=== PATIENT | male | born 1955 | race Caucasian/White ===

== ENCOUNTER 2022-08-25 11:48 | Inpatient (IN) ==
[2022-08-25] MEDS ORDERED: IOPAMIDOL 100 ML BOTTLE IV ONE (11:49)
[2022-08-25] MEDS ORDERED: ONDANSETRON 4 MG/2 ML VIAL IV ONE (11:50)
[2022-08-25] MEDS ORDERED: LACTATED RINGERS 1,000 ML IV ONE ×2 (11:50→14:08)
[2022-08-25] MEDS ORDERED: morphine 10 MG/ML VIAL IV ONE (12:07)
[2022-08-25 12:21] LABS: POC Creatinine 0.8 (0.6-1.2); POC Potassium 4.2 (3.3-5.1)
[2022-08-25 13:09] LABS: Basophils # (Auto) 0.07 K/mcL (0.00-0.30); Basophils % (Auto) 0.3 % (0.0-2.0); Eosinophils # (Auto) 0.17 K/mcL (0.00-0.70); Eosinophils % (Auto) 0.8 % (0.0-7.0); Hematocrit 44.9 % (40.1-51.0); Hemoglobin 13.4 g/dL (13.7-17.5); Lymphocytes # (Auto) 1.41 K/mcL (1.50-4.80); Lymphocytes % (Auto) 6.6 % (15.5-49.0); Mean Cell Volume 74.7 fL (80.0-100.0); Mean Corpuscular HGB Conc 29.8 g/dL (31.0-36.0); Mean Platelet Volume 8.4 fL (8.8-12.5); Monocytes # (Auto) 0.66 K/mcL (0.10-0.90); Monocytes % (Auto) 3.1 % (1.0-12.0); Neutrophils % (Auto) 88.5 % (38.0-78.0); Platelet Count 466 K/mcL (140-440); RBC 6.01 M/mcL (4.63-6.08); WBC 21.5 K/mcL (4.5-11.0)
--- NOTE | 2022-08-25 13:20 | Cat Scan Report ---
History: Small bowel obstruction, prior partial colectomy, nausea, vomiting, COPD TECHNIQUE: Following injection of intravenous nonionic contrast patient was imaged during the portal venous phase from above the diaphragm through the symphysis pubis. Sagittal and coronal reformats were created. The radiation exposure was limited using dose reduction technology. FINDINGS: There is mild pulmonary fibrosis in both lung bases. The bilateral pleural effusions and groundglass alveolar infiltrates seen on the prior CT done on 04/10/22 have resolved. Heart size is normal. Moderate amount of atherosclerotic plaque is present in the coronary arteries. There is bronchial wall thickening in both lung bases consistent with chronic bronchitis. Incidentally noted is bilateral gynecomastia. The liver is normal in size. There is mild generalized fatty infiltration. Gallbladder is distended but the wall is thin and there are no stones within the lumen. The bile ducts are nondilated. No mass or inflammation are present in the pancreas. Spleen is normal in size and homogeneous. There are multiple cysts in both kidneys. Largest extends posteriorly from the lower third of the right kidney measures 5 cm. There is milk of calcium layering posteriorly within this dominant cyst. There are also several nonobstructing calyceal stones in the right kidney. Largest measures 12 mm. These are also chronic. No stone is present in the left kidney. There is no solid mass or hydronephrosis in either kidney. The urinary bladder is normally distended and there are no stones within the lumen. The stomach is normally distended with fluid. The duodenum is decompressed. There is dilatation of the mid and distal jejunum and proximal ileum with large amount of fluid. There are several air-fluid levels. The jejunum measures up to 4.2 cm in transverse dimension. There is a gradual transition in the proximal ileum in the left upper pelvis. The distal ileum is collapsed and there is mild submucosal deposition of fat. No discrete mass is seen within the small intestine. Patient had a prior left colectomy performed. The remaining right-side of the colon and distal sigmoid/rectum are normal without evidence of inflammation or obstruction. The appendix is not visualized and may have been removed. No adenopathy ascites or mass are seen within the abdomen or pelvis. Severe atherosclerotic disease is present along the wall of normal caliber abdominal aorta and iliac arteries. No hernia is present. IMPRESSION: Distal small bowel obstruction in the proximal ileum. The deposition of submucosal fat in the distal ileum suggests chronic inflammatory bowel disease. However, this is a new finding since 04/10/22. The small bowel dilatation is much worse today. There may be occult adhesions. Stable nonobstructing stones in the right kidney and stable renal cysts COPD Dr. Ruvalcaba was called with the report Interpreted and Authenticated by: Warren Newton 08/25/22
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
[2022-08-25 13:34] LABS: ALT/SGPT 29 U/L (<40); AST/SGOT 21 U/L (<40); Alkaline Phosphatase 95 U/L (39-117); Bilirubin,Direct 0.2 mg/dL (<0.3); Bilirubin,Total 0.5 mg/dL (0.1-1.0)
[2022-08-25] MEDS: HYDROmorphone 0.5 MG/0.5 ML SYRINGE IV PRN ×6 (13:42→23:59)
[2022-08-25] MEDS ORDERED: PIPERACILLIN SODIUM/TAZOBACTAM 3.375 GM in DEXTROSE 5% IN WATER 50 ML IV ONE (14:03)
[2022-08-25] MEDS ORDERED: BENZOCAINE ONE 20% 1 SPRAY TOPICAL (14:36)
--- NOTE | 2022-08-25 15:12 | XRay Report ---
HISTORY: Nasogastric tube insertion for small bowel obstruction FINDINGS: Nasogastric tube is been inserted. The tip is in the cardia of the stomach. The sidehole is in the distal esophagus near the gastroesophageal junction. The stomach is decompressed. There is contrast in the kidneys following the preceding CT scan. There is no hydronephrosis. Lung bases are clear. IMPRESSION: NG tube in the upper stomach. This could be advanced several centimeters. Interpreted and Authenticated by: Warren Newton 08/25/22
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
[2022-08-25] MEDS ORDERED: fentaNYL 100 MCG/2 ML VIAL IV ONE (16:26)
[2022-08-25] MEDS ORDERED: KETOROLAC 30 MG/ML VIAL IV ONE (16:26)
[2022-08-25] MEDS ORDERED: DEXTROSE 50% 50 ML VIAL IV PRN (18:01)
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
--- NOTE | 2022-08-25 18:29 | XRay Report ---
HISTORY: Preop, bowel obstruction FINDINGS: The lungs are clear. The heart, mediastinum, darlene and pleura are normal. NG tube passes through the esophagus into the stomach. IMPRESSION: Normal chest Interpreted and Authenticated by: Warren Newton 08/25/22
[2022-08-25] MEDS: DEXTROSE 5%-LR 1,000 ML IV SCH (19:09)
[2022-08-25 20:42] LABS: INR 0.9 (0.9-1.1); Prothrombin Time 12.3 sec (11.9-14.5)
[2022-08-25] MEDS: PIPERACILLIN SODIUM/TAZOBACTAM 3.375 GM in DEXTROSE 5% IN WATER 50 ML IV SCH (21:32)
[2022-08-25] MEDS: IPRATROPIUM/ALBUTEROL 3 ML AMPUL.NEB NEB SCH (21:45)
[2022-08-25] MEDS ORDERED: IPRATROPIUM/ALBUTEROL 3 ML AMPUL.NEB NEB ONE (21:46)
[2022-08-25 23:40] LABS: Estimated Average Glucose(eAG) 157 mg/dL; Hemoglobin A1C 7.1 % Hgb (4.0-6.0)
[2022-08-26] MEDS: PIPERACILLIN SODIUM/TAZOBACTAM 3.375 GM in DEXTROSE 5% IN WATER 50 ML IV SCH ×5 (00:21→23:13)
[2022-08-26] MEDS: INSULIN LISPRO 1 UNIT/0.01 ML UNIT SQ SCH ×5 (00:29→23:21)
[2022-08-26] MEDS: IPRATROPIUM/ALBUTEROL 3 ML AMPUL.NEB NEB SCH ×4 (01:08→19:00)
[2022-08-26] MEDS: DEXTROSE 5%-LR 1,000 ML IV SCH ×5 (01:08→23:59)
[2022-08-26] MEDS: HYDROmorphone 0.5 MG/0.5 ML SYRINGE IV PRN ×9 (02:58→23:10)
[2022-08-26 06:46] LABS: Hematocrit 36.3 % (40.1-51.0); Hemoglobin 10.5 g/dL (13.7-17.5); Mean Cell Volume 75.2 fL (80.0-100.0); Mean Corpuscular HGB Conc 28.9 g/dL (31.0-36.0); Mean Platelet Volume 8.6 fL (8.8-12.5); Platelet Count 330 K/mcL (140-440); RBC 4.83 M/mcL (4.63-6.08); Red Cell Distribution Width 18.2 % (11.5-14.5)
[2022-08-26 06:47] LABS: Appearance,Urine TURBID (Clear); Bilirubin,Urine Negative (Negative); Calcium Oxalate Crystals,Urine FEW /hpf; Color,Urine AMBER; Culture Indicated,Urine No; Glucose,Urine (UA) Negative (Negative); Ketones,Urine Negative (Negative); Leukocyte Esterase,Urine Negative /uL (Negative); Mucus,Urine FEW /hpf; Nitrate,Urine Negative (Negative); Protein,Urine 30 mg/dL (Negative); Specific Gravity,Urine 1.049 (1.000-1.035); Urine Blood Negative (Negative); Urine RBC 10 /hpf (0-3); Urine Squamous Epithelial Cell 0 /hpf (0-4); Urine WBC 6 /hpf (0-4); Urobilinogen,Urine Negative
[2022-08-26 07:10] LABS: Blood Urea Nitrogen 20 mg/dL (8-23); Calcium 8.4 mg/dL (8.6-10.4); Carbon Dioxide 25 mmol/L (22-30); Chloride 105 mmol/L (96-108); Glomerular Filtration Rate 79; Glucose 168 mg/dL (70-105)
--- NOTE | 2022-08-26 09:05 | XRay Report ---
HISTORY: Follow-up small bowel obstruction FINDINGS: Supine and erect views were obtained. There is a nasogastric tube in the fundus of the stomach. The stomach is decompressed. There are couple loops of mildly dilated small intestine with air-fluid levels. The largest segment is in the left upper quadrant and measures 3.6 cm. Most of the small bowel is fluid-filled. The large bowel appears decompressed. Comparison with prior exam on 08/25/22 shows improving small bowel obstruction. No free intra-abdominal air is present. There is no apparent soft tissue mass in the abdomen. IMPRESSION: Improving small bowel obstruction Interpreted and Authenticated by: Warren Newton 08/26/22
[2022-08-26] MEDS: BENZOCAINE ONE 20% 1 SPRAY TOPICAL PRN (10:32)
--- NOTE | 2022-08-26 11:03 | General Surgery Progress Note ---
SUBJECTIVE Subjective Patient information: Note initiated : 08/26/22 at 11:00 am Service Date, if different from initiated Date: [] Patient: Kostas Barrios 67 y/o M admitted on 08/25/22 for Bowel Obstruction. Chief Complaint: [] Feels much improved. No gas or flatus yet, pain largely resolved Constitutional Vitals: Vital Signs Temp Pulse Resp BP Pulse Ox O2 Del Method O2 Flow Rate 98.2 F 94 H 18 150/69 99 Nasal Cannula 1.5 08/26/22 08:00 08/26/22 08:00 08/26/22 08:00 08/26/22 08:00 08/26/22 08:00 08/26/22 08:00 08/26/22 08:00 Period Temp Pulse Resp BP Sys/Barry Pulse Ox O2 Del Method O2 Flow Rate Last 24 Hr 97.4 F-98.8 F 94-135 18-26 148-206/63-121 91-99 Nasal Cannula- Room Air 1- Intake and Output 08/25/22 08/26/22 08/26/22 19:59 03:59 11:59 Intake Total 2049 1100 50 Output Total 450 200 Balance 2049 650 -150 Weight 231 lb 9.6 oz Intake & Output: Intake & Output 08/25/22 08/26/22 08/26/22 19:59 03:59 11:59 Intake Total 2049 1100 50 Output Total 450 200 Balance 0 650 -150 Weight 231 lb 9.6 oz Intake: IV 2049 1100 50 Dextrose 5%-Lactated Ringers 1, 1000 000 ml @ 125 mls/hr IV .Q8H ELSA Rx#:[id number] Lactated Ringers 1,000 ml @ 2000 Wide Open IV BOLUS ONE Rx#: [id number] Zosyn 3.375 gm In Dextrose 5% 50 100 50 in Water 50 ml @ 100 mls/hr IV Q6H ELSA Rx#:[id number] Oral 0 Output: Gastric Drainage 350 Right Nare 350 Void Amount 100 200 # of times incontinent of urine 0 Other: Urine Appearance Clear Clear Urine Color Dark Yellow Dark Yellow Urine Odor Strong Strong # Voids 0 Exam: looks well, non toxic, NAD Respiratory Respiratory exam: Present normal respiratory exam Cardiovascular Cardiovascular exam: Present normal rate and rhythm GI/Abdominal Additional comments: soft, less distended, minimally tender, NGT in place and functional Extremities Exam Additional comments: well perfused A/P Assessment and plan (1) Small bowel obstruction: Assessment and plan: Adhesion Related SBO Markedly improved overall Continue current management for now Advance NGT 3-5 cm and re check plain films in AM Status: Acute Time Spent With Patient Time: Total time spent is greater than 50% in coordination of care (as documented) at patient's floor/unit and/or counseling patient:
[2022-08-26] MEDS: PANTOPRAZOLE 40 MG VIAL IV SCH (11:43)
--- NOTE | 2022-08-26 12:34 | XRay Report ---
HISTORY: Small bowel obstruction, advanced nasogastric tube FINDINGS: There are couple loops of dilated small bowel in the left upper quadrant which measure up to 3.1 cm in diameter. The small bowel is smaller in caliber and it was on the earlier study. The NG tube has been advanced a couple centimeter. IMPRESSION: Improving small bowel obstruction Interpreted and Authenticated by: Warren Newton 08/26/22
--- NOTE | 2022-08-26 15:06 | Internal Med Progress Note ---
SUBJECTIVE Subjective Patient information: Note initiated : 08/26/22 at 3:03 pm Service Date, if different from initiated Date: [] Patient: Kostas Barrios 67 y/o M admitted on 08/25/22 for Bowel Obstruction. Chief Complaint: [] Additional PMFSH (Level 3 Only): Patient is a 67 years old male with diabetes mellitus 2, CAD, COPD, DJD, hepatitis C, ankylosing spondylitis, rheumatoid arthritis on prednisone, vitamin D deficiency has history of multiple recurrent small bowel obstructions, prior bowel perforation requiring partial colectomy and small bowel removal presented with acute onset of diffuse abdominal pain, nausea and vomiting since morning. Patient states it is similar to his prior bowel obstruction. Patient reported his last bowel obstruction was around 6 months ago when he was admitted in [place] this resolved with nonoperative management. Patient reports usually he does not require any supplemental oxygen for COPD but on ambulation up to 2 L he needs. His reported patient has had at least around [address] scan abdomen showed distal small bowel obstruction and proximal ileum. Patient was tachycardic, blood pressure was elevated 186/111 suspect due to pain. Labs showed WBC 21.5, hemoglobin 13.4. Lactic acid 3.6. Renal functions and electrolytes stable, glucose 230. 6/22. Patient feels much improved. Pain has significantly improved. No nausea or vomiting, has not passed flatus or has no bowel movement. Review of system 14 point review of system obtained was negative except mentioned above. Physical examination Alert, sitting up, appears significantly improved Normocephalic, atraumatic No scleral icterus Chest is clear bilaterally S1 and S2, sinus tachycardia heart rate improved to 100, no murmurs heard Abdomen less distended, less tender mainly in the left abdomen, no rebound or rigidity Alert and oriented, no focal deficits Appropriate mood Assessment and plan Recurrent small bowel obstruction with significant leukocytosis and lactic acidosis. Overall improving. Abdominal x-ray shows resolving bowel obstruction. Leukocytosis resolved. Continue antibiotics. Continue NGT. Surgery following. Ice chips to keep mouth right Diabetes mellitus 2, insulin sliding scale. CAD, EKG without any acute ischemia. Appears stable CHF, hold Lasix for surgery COPD, not in exacerbation currently, DuoNebs DJD, continue fentanyl patch Hepatitis C, stable Ankylosing spondylitis, stable Vitamin D deficiency GERD, on PPI Tobacco abuse, nicotine patch BPH, continue tamsulosin Insomnia, trazodone DVT prophylaxis with SCDs Full code Total time > 50 min Constitutional Vitals: Vital Signs Temp Pulse Resp BP Pulse Ox O2 Del Method O2 Flow Rate 97.9 F 102 H 16 160/80 95 Room Air 1 08/26/22 12:00 08/26/22 12:01 08/26/22 12:01 08/26/22 12:00 08/26/22 12:01 08/26/22 12:01 08/26/22 12:00 Period Temp Pulse Resp BP Sys/Barry Pulse Ox O2 Del Method O2 Flow Rate Last 24 Hr 97.4 F-98.8 F 94-135 16-26 148-205/63-112 91-99 Nasal Cannula- Room Air - Intake and Output 08/26/22 08/26/22 08/26/22 03:59 11:59 19:59 Intake Total 1100 1025 50 Output Total 450 350 750 Balance 650 675 -700 Intake & Output: Intake & Output 08/26/22 08/26/22 08/26/22 03:59 11:59 19:59 Intake Total 1100 1025 50 Output Total 450 350 750 Balance 650 675 -700 Intake: IV 1100 1025 50 Dextrose 5%-Lactated Ringers 1, 1000 975 000 ml @ 125 mls/hr IV .Q8H ELSA Rx#:[id number] Zosyn 3.375 gm In Dextrose 5% 100 50 50 in Water 50 ml @ 100 mls/hr IV Q6H ELSA Rx#:[id number] Oral 0 Tube Feeding 0 Output: Gastric Drainage 350 750 NG/OG 750 Right Nare 350 Void Amount 100 350 # of times incontinent of urine 0 Other: Urine Appearance Clear Clear Urine Color Dark Yellow Yellow Urine Odor Strong Strong # Voids 0 OBJ DATA Labs 08/26/22 05:47 08/26/22 05:47 Labs: Abnormal Lab Results 08/26/22 08/26/22 08/25/22 05:47 05:47 18:12 WBC Hgb 10.5 L Hct 36.3 L MCV 75.2 L MCH 21.7 L MCHC 28.9 L RDW 18.2 H Plt Count MPV 8.6 L Immature Gran % (Auto) Neut % (Auto) Lymph % (Auto) Lymph # (Auto) Immature Gran # Absolute Neutrophils POC VBG pH POC VBG pCO2 at Temp POC VBG pO2 POC VBG HCO3 POC Venous O2 Sat VBG Lactic Acid POC Anion Gap POC BUN Glucose 168 H POC Glucose Hemoglobin A1c 7.1 H Calcium 8.4 L POC WB Ioniz Calcium Urine Appearance Urine Protein Urine RBC Urine WBC Calcium Oxalate Crystal Urine Mucus 08/25/22 08/25/22 08/25/22 15:40 13:30 12:19 WBC Hgb Hct MCV MCH MCHC RDW Plt Count MPV Immature Gran % (Auto) Neut % (Auto) Lymph % (Auto) Lymph # (Auto) Immature Gran # Absolute Neutrophils POC VBG pH POC VBG pCO2 at Temp 37.9 L POC VBG pO2 65 H POC VBG HCO3 23.8 L POC Venous O2 Sat 92.0 H VBG Lactic Acid 2.7 H POC Anion Gap 18.0 H POC BUN 25 H Glucose POC Glucose 230 H Hemoglobin A1c Calcium POC WB Ioniz Calcium 1.00 L Urine Appearance Turbid A Urine Protein 30 A Urine RBC 10 H Urine WBC 6 H Calcium Oxalate Crystal Few A Urine Mucus Few A 08/25/22 08/25/22 12:15 12:14 WBC 21.5 H Hgb 13.4 L Hct MCV 74.7 L MCH 22.3 L MCHC 29.8 L RDW 19.0 H Plt Count 466 H MPV 8.4 L Immature Gran % (Auto) 0.7 H Neut % (Auto) 88.5 H Lymph % (Auto) 6.6 L Lymph # (Auto) 1.41 L Immature Gran # 0.16 H Absolute Neutrophils 19.04 H POC VBG pH 7.48 H POC VBG pCO2 at Temp 31.7 L POC VBG pO2 69 H POC VBG HCO3 23.7 L POC Venous O2 Sat 95.0 H VBG Lactic Acid 3.6 H POC Anion Gap POC BUN Glucose POC Glucose Hemoglobin A1c Calcium POC WB Ioniz Calcium Urine Appearance Urine Protein Urine RBC Urine WBC Calcium Oxalate Crystal Urine Mucus Meds: Medications Albuterol/Ipratropium (Ipratropium/Albuterol 3 Ml Ampul.Neb) 3 ml NEB Q6HRT ELSA Last Admin: 08/26/22 12:00 Dose: 3 ml Benzocaine (Benzocaine 20% 1 [place] Each) 1 spray TOPICAL Q4HP PRN PRN Reason: NG TUBE Last Admin: 08/26/22 10:32 Dose: 1 spray Dextrose (Dextrose 50% 50 Ml Vial) 0 ml IV UD PRN PRN Reason: Hypoglycemia Diagnostic Test (Pha) (Accu-Chek 1 Each Strip) 1 each FS Q6 ELSA Last Admin: 08/26/22 11:28 Dose: 1 each Hydromorphone HCl (Hydromorphone 0.5 Mg/0.5 Ml Syringe) 0.5 mg IV Q1HP PRN; Protocol PRN Reason: Per Pain Protocol Last Admin: 08/26/22 13:28 Dose: 0.5 mg Piperacillin Sod/Tazobactam (Sod 3.375 gm/ Dextrose) 50 mls @ 100 mls/hr IV Q6H ELSA; Protocol Last Infusion: 08/26/22 12:32 Dose: Infused Dextrose/Lactated Ringer's (Dextrose 5%-Lactated Ringers) 1,000 mls @ 125 mls/hr IV .Q8H ELSA Last Admin: 08/26/22 11:01 Dose: 125 mls/hr Insulin Human Lispro (Insulin Lispro 1 Unit/0.01 Ml Unit) 0 unit SQ Q6 ELSA; Protocol Last Admin: 08/26/22 11:43 Dose: 2 units Pantoprazole Sodium (Pantoprazole 40 Mg Vial) 40 mg IV QAMAC ELSA Last Admin: 08/26/22 11:43 Dose: 40 mg A/P Time Spent With Patient Time: Total time spent is greater than 50% in coordination of care (as documented) at patient's floor/unit and/or counseling patient: QUALITY Stroke Symptom Onset Unknown: No VTE Deep Vein Thrombosis/Pulmonary Embolism Present on Admission: No
[2022-08-26] MEDS: ACETAMINOPHEN 650 MG/65 ML BAG IV PRN ×2 (16:35→20:21)
[2022-08-26] MEDS: hydrALAZINE 20 MG/ML VIAL IV PRN ×2 (17:38→23:55)
--- NOTE | 2022-08-26 17:57 | EKG ---
[facility] Test Date: 2022-08-25 Pat Name: Kostas Barrios Department: ED Room: Gender: Male [employer]: PERRI : 1955 Requested By: Sergio Ruvalcaba Order Number: [id number] Reading MD: Guy Newton M.D. Measurements Intervals Gable Rate: 120 P: 85 AR: 167 QRS: 89 QRSD: 69 T: 61 QT: 322 QTc: 455 Interpretive Statements Sinus tachycardia Electronically Signed On 08-26-2022 17:56:54 PDT by Guy Newton M.D. /store/[email or web address]/[id number]
--- NOTE | 2022-08-26 18:10 | Internal Med Progress Note ---
SUBJECTIVE Subjective Patient information: Note initiated : 08/26/22 at 6:10 pm Service Date, if different from initiated Date: [] Patient: Kostas Barrios 67 y/o M admitted on 08/25/22 for Bowel Obstruction. Chief Complaint: [] Additional PMFSH (Level 3 Only): Patient is a 67 years old male with diabetes mellitus 2, CAD, COPD, DJD, hepatitis C, ankylosing spondylitis, rheumatoid arthritis on prednisone, vitamin D deficiency has history of multiple recurrent small bowel obstructions, prior bowel perforation requiring partial colectomy and small bowel removal presented with acute onset of diffuse abdominal pain, nausea and vomiting since morning. Patient states it is similar to his prior bowel obstruction. Patient reported his last bowel obstruction was around 6 months ago when he was admitted in [place] this resolved with nonoperative management. Patient reports usually he does not require any supplemental oxygen for COPD but on ambulation up to 2 L he needs. His reported patient has had at least around [address] scan abdomen showed distal small bowel obstruction and proximal ileum. Patient was tachycardic, blood pressure was elevated 186/111 suspect due to pain. Labs showed WBC 21.5, hemoglobin 13.4. Lactic acid 3.6. Renal functions and electrolytes stable, glucose 230. 08/26. Patient feels much improved. Pain has significantly improved. No nausea or vomiting, has not passed flatus or has no bowel movement. 08/27. Patient reports abdominal pain is almost the same. Nursing staff reported NG output of about 800 cc. Not passing gas or flatus. No bowel movement. No leukocytosis, no fever. Surgery following Review of system 14 point review of system obtained was negative except mentioned above. Physical examination Alert, sitting up, nontoxic appearance Normocephalic, atraumatic No scleral icterus Chest is clear bilaterally S1 and S2, RRR, no murmurs heard Abdomen mild to moderately distended, diffuse tenderness, no rebound or rigidity Alert and oriented, no focal deficits Appropriate mood Assessment and plan Recurrent small bowel obstruction with significant leukocytosis and elevated lactic acid Continues to report tenderness. No flatus or passing gas. Continue antibiotics Continue NGT ? Small bowel series. Defer to surgery. Diabetes mellitus 2, insulin sliding scale. CAD, EKG without any acute ischemia. Appears stable CHF, hold Lasix for surgery COPD, not in exacerbation currently, DuoNebs DJD, continue fentanyl patch Hepatitis C, stable Ankylosing spondylitis, stable Vitamin D deficiency GERD, on PPI Tobacco abuse, nicotine patch BPH, continue tamsulosin Insomnia, trazodone DVT prophylaxis with SCDs Full code Total time > 50 min Constitutional Vitals: Vital Signs Temp Pulse Resp BP Pulse Ox O2 Del Method O2 Flow Rate 99 F 102 H 22 148/71 94 Room Air 1 08/26/22 16:35 08/26/22 16:00 08/26/22 16:00 08/26/22 17:53 08/26/22 16:00 08/26/22 16:00 08/26/22 12:00 Period Temp Pulse Resp BP Sys/Barry Pulse Ox O2 Del Method O2 Flow Rate Last 24 Hr 97.4 F-99 F 94-119 16- 148-182/63-83 94-99 Nasal Cannula- Room Air - Intake and Output 08/26/22 08/26/22 08/26/22 03:59 11:59 19:59 Intake Total 1100 1025 796 Output Total 450 350 925 Balance 650 675 -129 Weight 105.052 kg Patient Weight 08/27/22 03:59 Weight 105.052 kg Intake & Output: Intake & Output 08/26/22 08/26/22 08/26/22 03:59 11:59 19:59 Intake Total 1100 1025 796 Output Total 450 350 925 Balance 650 675 -129 Weight 105.052 kg Intake: IV 1100 1025 796 Dextrose 5%-Lactated Ringers 1, 1000 975 631 000 ml @ 125 mls/hr IV .Q8H ELSA Rx#:[id number] Zosyn 3.375 gm In Dextrose 5% 100 50 100 in Water 50 ml @ 100 mls/hr IV Q6H ELSA Rx#:[id number] Oral 0 Tube Feeding 0 Output: Gastric Drainage 350 750 NG/OG 750 Right Nare 350 Void Amount 100 350 175 # of times incontinent of urine 0 Other: Urine Appearance Clear Clear Clear Urine Color Dark Yellow Yellow Yellow Urine Odor Strong Strong # Voids 0 OBJ DATA Labs 08/27/22 06:16 08/27/22 06:16 Labs: Abnormal Lab Results 08/26/22 08/26/22 08/25/22 05:47 05:47 18:12 WBC Hgb 10.5 L Hct 36.3 L MCV 75.2 L MCH 21.7 L MCHC 28.9 L RDW 18.2 H Plt Count MPV 8.6 L Immature Gran % (Auto) Neut % (Auto) Lymph % (Auto) Lymph # (Auto) Immature Gran # Absolute Neutrophils POC VBG pH POC VBG pCO2 at Temp POC VBG pO2 POC VBG HCO3 POC Venous O2 Sat VBG Lactic Acid POC Anion Gap POC BUN Glucose 168 H POC Glucose Hemoglobin A1c 7.1 H Calcium 8.4 L POC WB Ioniz Calcium Urine Appearance Urine Protein Urine RBC Urine WBC Calcium Oxalate Crystal Urine Mucus 08/25/22 08/25/22 08/25/22 15:40 13:30 12:19 WBC Hgb Hct MCV MCH MCHC RDW Plt Count MPV Immature Gran % (Auto) Neut % (Auto) Lymph % (Auto) Lymph # (Auto) Immature Gran # Absolute Neutrophils POC VBG pH POC VBG pCO2 at Temp 37.9 L POC VBG pO2 65 H POC VBG HCO3 23.8 L POC Venous O2 Sat 92.0 H VBG Lactic Acid 2.7 H POC Anion Gap 18.0 H POC BUN 25 H Glucose POC Glucose 230 H Hemoglobin A1c Calcium POC WB Ioniz Calcium 1.00 L Urine Appearance Turbid A Urine Protein 30 A Urine RBC 10 H Urine WBC 6 H Calcium Oxalate Crystal Few A Urine Mucus Few A 08/25/22 08/25/22 12:15 12:14 WBC 21.5 H Hgb 13.4 L Hct MCV 74.7 L MCH 22.3 L MCHC 29.8 L RDW 19.0 H Plt Count 466 H MPV 8.4 L Immature Gran % (Auto) 0.7 H Neut % (Auto) 88.5 H Lymph % (Auto) 6.6 L Lymph # (Auto) 1.41 L Immature Gran # 0.16 H Absolute Neutrophils 19.04 H POC VBG pH 7.48 H POC VBG pCO2 at Temp 31.7 L POC VBG pO2 69 H POC VBG HCO3 23.7 L POC Venous O2 Sat 95.0 H VBG Lactic Acid 3.6 H POC Anion Gap POC BUN Glucose POC Glucose Hemoglobin A1c Calcium POC WB Ioniz Calcium Urine Appearance Urine Protein Urine RBC Urine WBC Calcium Oxalate Crystal Urine Mucus Meds: Medications Albuterol/Ipratropium (Ipratropium/Albuterol 3 Ml Ampul.Neb) 3 ml NEB Q6HRT ELSA Last Admin: 08/26/22 12:00 Dose: 3 ml Benzocaine (Benzocaine 20% 1 [place] Each) 1 spray TOPICAL Q4HP PRN PRN Reason: NG TUBE Last Admin: 08/26/22 10:32 Dose: 1 spray Dextrose (Dextrose 50% 50 Ml Vial) 0 ml IV UD PRN PRN Reason: Hypoglycemia Diagnostic Test (Pha) (Accu-Chek 1 Each Strip) 1 each FS Q6 ELSA Last Admin: 08/26/22 17:15 Dose: 1 each Hydralazine HCl (Hydralazine 20 Mg/Ml Vial) 10 mg IV Q6HP PRN PRN Reason: Hypertension Last Admin: 08/26/22 17:38 Dose: 10 mg Hydromorphone HCl (Hydromorphone 0.5 Mg/0.5 Ml Syringe) 0.5 mg IV Q1HP PRN; Protocol PRN Reason: Per Pain Protocol Last Admin: 08/26/22 16:04 Dose: 0.5 mg Piperacillin Sod/Tazobactam (Sod 3.375 gm/ Dextrose) 50 mls @ 100 mls/hr IV Q6H ELSA; Protocol Last Infusion: 08/26/22 17:37 Dose: Infused Dextrose/Lactated Ringer's (Dextrose 5%-Lactated Ringers) 1,000 mls @ 125 mls/hr IV .Q8H ELSA Last Infusion: 08/26/22 17:15 Dose: 125 mls/hr Acetaminophen (Ofirmev) 650 mg in 65 mls @ 130 mls/hr IV Q8HP PRN; Protocol PRN Reason: PAIN/FEVER > 101 Last Infusion: 08/26/22 17:14 Dose: Infused Insulin Human Lispro (Insulin Lispro 1 Unit/0.01 Ml Unit) 0 unit SQ Q6 ELSA; Protocol Last Admin: 08/26/22 17:15 Dose: Not Given Labetalol HCl (Labetalol 5 Mg/Ml Ml) 10 mg IV Q2HP PRN PRN Reason: Hypertension Pantoprazole Sodium (Pantoprazole 40 Mg Vial) 40 mg IV QAMAC ELSA Last Admin: 08/26/22 11:43 Dose: 40 mg A/P Time Spent With Patient Time: Total time spent is greater than 50% in coordination of care (as documented) at patient's floor/unit and/or counseling patient: QUALITY Stroke Symptom Onset Unknown: No VTE Deep Vein Thrombosis/Pulmonary Embolism Present on Admission: No
[2022-08-26] MEDS ORDERED: ACETAMINOPHEN 325 MG TABLET PO ONE (19:42)
[2022-08-26] MEDS: LABETALOL 5 MG/ML ML IV PRN (20:19)
[2022-08-27] MEDS: HYDROmorphone 0.5 MG/0.5 ML SYRINGE IV PRN ×15 (00:52→20:34)
[2022-08-27] MEDS: IPRATROPIUM/ALBUTEROL 3 ML AMPUL.NEB NEB SCH ×4 (00:53→19:00)
[2022-08-27] MEDS: DEXTROSE 5%-LR 1,000 ML IV SCH ×4 (03:08→23:31)
[2022-08-27] MEDS: LABETALOL 5 MG/ML ML IV PRN ×2 (03:12→19:16)
[2022-08-27] MEDS: ACETAMINOPHEN 650 MG/65 ML BAG IV PRN ×2 (03:14→12:03)
[2022-08-27] MEDS: PIPERACILLIN SODIUM/TAZOBACTAM 3.375 GM in DEXTROSE 5% IN WATER 50 ML IV SCH ×3 (05:56→18:00)
[2022-08-27] MEDS: INSULIN LISPRO 1 UNIT/0.01 ML UNIT SQ SCH ×3 (06:04→17:29)
[2022-08-27 06:56] LABS: Hematocrit 35.6 % (40.1-51.0); Hemoglobin 10.3 g/dL (13.7-17.5); Mean Cell Volume 75.7 fL (80.0-100.0); Mean Corpuscular HGB Conc 28.9 g/dL (31.0-36.0); Mean Platelet Volume 8.8 fL (8.8-12.5); Platelet Count 307 K/mcL (140-440); WBC 10.5 K/mcL (4.5-11.0)
[2022-08-27] MEDS: PANTOPRAZOLE 40 MG VIAL IV SCH (07:28)
[2022-08-27 07:48] LABS: Blood Urea Nitrogen 9 mg/dL (8-23); Calcium 8.4 mg/dL (8.6-10.4); Carbon Dioxide 23 mmol/L (22-30); Chloride 104 mmol/L (96-108); Glomerular Filtration Rate 105; Glucose 149 mg/dL (70-105)
[2022-08-27] MEDS: BENZOCAINE ONE 20% 1 SPRAY TOPICAL PRN ×2 (08:57→17:14)
--- NOTE | 2022-08-27 11:25 | XRay Report ---
HISTORY: Follow-up small bowel obstruction FINDINGS: Nasogastric tube is well-positioned in the fundus of the stomach. The stomach is decompressed. There is air in normal caliber large and small intestine. Previously seen small bowel obstruction appears to have resolved. There is air in the colon down to the level of the lower rectum. No free intra-abdominal air is present. IMPRESSION: Resolved bowel obstruction Interpreted and Authenticated by: Warren Newton 08/27/22
[2022-08-27] MEDS ORDERED: IOPAMIDOL 100 ML BOTTLE IV ONE (18:11)
--- NOTE | 2022-08-27 19:43 | Cat Scan Report ---
History: Small bowel obstruction TECHNIQUE: Following injection of intravenous nonionic contrast the patient was imaged from above the diaphragm through the symphysis pubis during the portal venous phase. Sagittal and coronal reformats were created. The radiation exposure was limited using dose reduction technology. FINDINGS: There is mild pulmonary fibrosis in both lung bases which remain stable. No pleural effusion is present. The liver is normal in size and homogeneous. Gallbladder is distended and measures 5.8 x 9.1 cm. The wall is very thin and there are no stones or sludge within the lumen. No pericholecystic fluid collection is present. The bile ducts are nondilated. The spleen is normal. There is no mass or inflammation in the pancreas. The adrenals are normal. There are several scattered cysts in both kidneys. There is a cluster nonobstructing calculi posteriorly in the right kidney. No hydronephrosis is present. There is a nasogastric tube in the body of the stomach. The stomach is decompressed. The duodenum and jejunum are normal. The previously seen small bowel obstruction has resolved since the prior CT done on 08/25/22. However, there is a long segment of abnormal distal ileum with thickened wall. The wall measures up to 9 mm. This extends to the ileocecal valve. This is well seen on axial image #136. There is no surrounding inflammation. No abscess or ascites are present. There is stool in normal caliber large intestine. There is no evidence of diverticulitis or colitis. Urinary bladder is moderately distended and has a smooth wall with no intraluminal filling defects. No adenopathy is present. IMPRESSION: Resolved small bowel obstruction. Long segment of thickened and inflamed distal ileum. This may be due to inflammatory bowel disease. No abdominal mass or ascites Distended gallbladder Interpreted and Authenticated by: Warren Newton 08/27/22
[2022-08-27] MEDS ORDERED: ACETAMINOPHEN 1,000 MG/100 ML BAG IV PRN (20:40)
[2022-08-27] MEDS: HYDROmorphone 1 MG/ML SYRINGE IV PRN ×2 (21:42→23:40)
[2022-08-27] MEDS: ACETAMINOPHEN 1,000 MG/100 ML BAG IV PRN (21:44)
[2022-08-27] MEDS ORDERED: CIPROFLOXACIN 400 MG/200 ML BAG IV SCH (22:15)
[2022-08-27] MEDS ORDERED: CIPROFLOXACIN 400 MG/200 ML BAG IV ONE (22:37)
[2022-08-27] MEDS ORDERED: metroNIDAZOLE 100 ML IV ONE (22:37)
[2022-08-27] MEDS: metroNIDAZOLE 500 MG/100 ML BAG IV SCH (22:38)
[2022-08-28] MEDS: INSULIN LISPRO 1 UNIT/0.01 ML UNIT SQ SCH ×5 (00:17→23:32)
[2022-08-28] MEDS: PIPERACILLIN SODIUM/TAZOBACTAM 3.375 GM in DEXTROSE 5% IN WATER 50 ML IV SCH ×5 (00:47→23:32)
[2022-08-28] MEDS: IPRATROPIUM/ALBUTEROL 3 ML AMPUL.NEB NEB SCH ×4 (01:25→18:10)
[2022-08-28] MEDS: HYDROmorphone 1 MG/ML SYRINGE IV PRN ×13 (01:35→23:23)
[2022-08-28] MEDS: DEXTROSE 5%-LR 1,000 ML IV SCH ×4 (03:00→23:23)
[2022-08-28] MEDS ORDERED: metroNIDAZOLE 100 ML IV ONE (03:54)
[2022-08-28] MEDS: ACETAMINOPHEN 1,000 MG/100 ML BAG IV PRN (05:38)
[2022-08-28] MEDS: metroNIDAZOLE 500 MG/100 ML BAG IV SCH ×3 (06:19→21:30)
[2022-08-28 06:39] LABS: Hematocrit 34.1 % (40.1-51.0); Hemoglobin 10.3 g/dL (13.7-17.5); Mean Cell Volume 75.4 fL (80.0-100.0); Mean Corpuscular HGB Conc 30.2 g/dL (31.0-36.0); Mean Platelet Volume 8.5 fL (8.8-12.5); Platelet Count 308 K/mcL (140-440); RBC 4.52 M/mcL (4.63-6.08); Red Cell Distribution Width 17.8 % (11.5-14.5); WBC 8.5 K/mcL (4.5-11.0)
[2022-08-28] MEDS: PANTOPRAZOLE 40 MG VIAL IV SCH (07:28)
[2022-08-28 07:41] LABS: Blood Urea Nitrogen 7 mg/dL (8-23); Calcium 8.6 mg/dL (8.6-10.4); Carbon Dioxide 22 mmol/L (22-30); Chloride 104 mmol/L (96-108); Glomerular Filtration Rate 94; Glucose 114 mg/dL (70-105)
[2022-08-28] MEDS ORDERED: POTASSIUM CHLORIDE 20 MEQ TABLET PO ONE (08:34)
[2022-08-28] MEDS: CIPROFLOXACIN 400 MG/200 ML BAG IV SCH ×2 (08:54→20:22)
[2022-08-28] MEDS: BENZOCAINE ONE 20% 1 SPRAY TOPICAL PRN (09:01)
--- NOTE | 2022-08-28 11:55 | Internal Med Progress Note ---
SUBJECTIVE Subjective Patient information: Note initiated : 08/28/22 at 11:54 am Service Date, if different from initiated Date: [] Patient: Kostas Barrios 67 y/o M admitted on 08/25/22. Chief Complaint: [] Interval history: Patient is a 67 years old male with diabetes mellitus 2, CAD, COPD, DJD, hepatitis C, ankylosing spondylitis, rheumatoid arthritis on prednisone, vitamin D deficiency has history of multiple recurrent small bowel obstructions, prior bowel perforation requiring partial colectomy and small bowel removal presented with acute onset of diffuse abdominal pain, nausea and vomiting since morning. Patient states it is similar to his prior bowel obstruction. Patient reported his last bowel obstruction was around 6 months ago when he was admitted in [place] this resolved with nonoperative management. Patient reports usually he does not require any supplemental oxygen for COPD but on ambulation up to 2 L he needs. His reported patient has had at least around [address] scan abdomen showed distal small bowel obstruction and proximal ileum. Patient was tachycardic, blood pressure was elevated 186/111 suspect due to pain. Labs showed WBC 21.5, hemoglobin 13.4. Lactic acid 3.6. Renal functions and electrolytes stable, glucose 230. /. Patient feels much improved. Pain has significantly improved. No nausea or vomiting, has not passed flatus or has no bowel movement. 08/27. Patient reports abdominal pain is almost the same. Nursing staff reported NG output of about 800 cc. Not passing gas or flatus. No bowel movement. No leukocytosis, no fever. Surgery following. 08/28. Patient says he is passing gas but has not had a bowel movement yet. Abdomen soft, tenderness mostly in left abdominal quadrant. Low potassium today, replaced. Continues on NG tube to suction per general surgery. Physical exam Head: Atraumatic, normal inspection. Eyes: normal appearance, no scleral icterus. Neck: full ROM Respiratory: no respiratory distress. Cardiovascular: normal rate and rhythm, S1, S2. GI/Abdominal: Nasogastric tube present, nondistended, soft, tenderness in left quadrant, no guarding. Extremities: full range of motion, nontender. Neurological: CN II-XII intact, intact motor, intact sensation. Psychiatric: normal mood. Skin: warm, normal color Constitutional Vitals: Vital Signs Temp Pulse Resp BP Pulse Ox O2 Del Method O2 Flow Rate 98.6 F 91 H 20 154/73 97 Room Air 1 08/28/22 07:33 08/28/22 07:33 08/28/22 07:33 08/28/22 07:33 08/28/22 07:33 08/28/22 07:33 08/26/22 12:00 Period Temp Pulse Resp BP Sys/Barry Pulse Ox O2 Del Method O2 Flow Rate Last 24 Hr 98.2 F-98.7 F 90-100 18-20 122-171/57-75 95-98 Room Air-Room Air Intake and Output 08/27/22 08/28/22 08/28/22 19:59 03:59 11:59 Intake Total 903 1002 1502 Output Total 1450 650 340 Balance -791 417 1452 Weight 103.51 kg Intake & Output: Intake & Output 08/27/22 08/28/22 08/28/22 19:59 03:59 11:59 Intake Total 903 1002 1502 Output Total 1450 650 340 Balance -388 275 8891 Weight 103.51 kg Intake: IV 250 292 2334 Dextrose 5%-Lactated Ringers 1, 421 009 5868 000 ml @ 125 mls/hr IV .Q8H ELSA Rx#:[id number] Zosyn 3.375 gm In Dextrose 5% 100 50 100 in Water 50 ml @ 100 mls/hr IV Q6H ELSA Rx#:[id number] Oral 190 100 Tube Feeding 0 0 Output: Gastric Drainage 650 250 NG/OG 650 Right Nare 250 Void Amount 800 400 340 Other: Urine Appearance Clear Clear Urine Color Yellow Yellow OBJ DATA Labs 08/28/22 05:28 08/28/22 05:28 Labs: Abnormal Lab Results 08/28/22 08/28/22 08/27/22 05:28 05:28 06:16 WBC RBC 4.52 L Hgb 10.3 L Hct 34.1 L MCV 75.4 L MCH 22.8 L MCHC 30.2 L RDW 17.8 H Plt Count MPV 8.5 L Immature Gran % (Auto) Neut % (Auto) Lymph % (Auto) Lymph # (Auto) Immature Gran # Absolute Neutrophils POC VBG pH POC VBG pCO2 at Temp POC VBG pO2 POC VBG HCO3 POC Venous O2 Sat VBG Lactic Acid Potassium 3.2 L POC Anion Gap POC BUN BUN 7 L Creatinine 0.6 L Glucose 114 H 149 H POC Glucose Hemoglobin A1c Calcium 8.4 L POC WB Ioniz Calcium Urine Appearance Urine Protein Urine RBC Urine WBC Calcium Oxalate Crystal Urine Mucus 08/27/22 08/26/22 08/26/22 06:16 05:47 05:47 WBC RBC Hgb 10.3 L 10.5 L Hct 35.6 L 36.3 L MCV 75.7 L 75.2 L MCH 21.9 L 21.7 L MCHC 28.9 L 28.9 L RDW 18.0 H 18.2 H Plt Count MPV 8.6 L Immature Gran % (Auto) Neut % (Auto) Lymph % (Auto) Lymph # (Auto) Immature Gran # Absolute Neutrophils POC VBG pH POC VBG pCO2 at Temp POC VBG pO2 POC VBG HCO3 POC Venous O2 Sat VBG Lactic Acid Potassium POC Anion Gap POC BUN BUN Creatinine Glucose 168 H POC Glucose Hemoglobin A1c Calcium 8.4 L POC WB Ioniz Calcium Urine Appearance Urine Protein Urine RBC Urine WBC Calcium Oxalate Crystal Urine Mucus 08/25/22 08/25/22 08/25/22 18:12 15:40 13:30 WBC RBC Hgb Hct MCV MCH MCHC RDW Plt Count MPV Immature Gran % (Auto) Neut % (Auto) Lymph % (Auto) Lymph # (Auto) Immature Gran # Absolute Neutrophils POC VBG pH POC VBG pCO2 at Temp 37.9 L POC VBG pO2 65 H POC VBG HCO3 23.8 L POC Venous O2 Sat 92.0 H VBG Lactic Acid 2.7 H Potassium POC Anion Gap POC BUN BUN Creatinine Glucose POC Glucose Hemoglobin A1c 7.1 H Calcium POC WB Ioniz Calcium Urine Appearance Turbid A Urine Protein 30 A Urine RBC 10 H Urine WBC 6 H Calcium Oxalate Crystal Few A Urine Mucus Few A 08/25/22 08/25/22 08/25/22 12:19 12:15 12:14 WBC 21.5 H RBC Hgb 13.4 L Hct MCV 74.7 L MCH 22.3 L MCHC 29.8 L RDW 19.0 H Plt Count 466 H MPV 8.4 L Immature Gran % (Auto) 0.7 H Neut % (Auto) 88.5 H Lymph % (Auto) 6.6 L Lymph # (Auto) 1.41 L Immature Gran # 0.16 H Absolute Neutrophils 19.04 H POC VBG pH 7.48 H POC VBG pCO2 at Temp 31.7 L POC VBG pO2 69 H POC VBG HCO3 23.7 L POC Venous O2 Sat 95.0 H VBG Lactic Acid 3.6 H Potassium POC Anion Gap 18.0 H POC BUN 25 H BUN Creatinine Glucose POC Glucose 230 H Hemoglobin A1c Calcium POC WB Ioniz Calcium 1.00 L Urine Appearance Urine Protein Urine RBC Urine WBC Calcium Oxalate Crystal Urine Mucus Meds: Medications Albuterol/Ipratropium (Ipratropium/Albuterol 3 Ml Ampul.Neb) 3 ml NEB Q6HRT ELSA Last Admin: 08/28/22 06:26 Dose: 3 ml Benzocaine (Benzocaine 20% 1 [place] Each) 1 spray TOPICAL Q4HP PRN PRN Reason: NG TUBE Last Admin: 08/28/22 09:01 Dose: 1 spray Dextrose (Dextrose 50% 50 Ml Vial) 0 ml IV UD PRN PRN Reason: Hypoglycemia Diagnostic Test (Pha) (Accu-Chek 1 Each Strip) 1 each FS Q6 ELSA Last Admin: 08/28/22 11:03 Dose: 1 each Hydralazine HCl (Hydralazine 20 Mg/Ml Vial) 10 mg IV Q6HP PRN PRN Reason: Hypertension Last Admin: 08/26/22 23:55 Dose: 10 mg Hydromorphone HCl (Hydromorphone 1 Mg/Ml Syringe) 0.5 - 1 mg IV Q1HP PRN; Protocol PRN Reason: Per Pain Protocol Last Admin: 08/28/22 11:37 Dose: 1 mg Piperacillin Sod/Tazobactam (Sod 3.375 gm/ Dextrose) 50 mls @ 100 mls/hr IV Q6H ELSA; Protocol Last Infusion: 08/28/22 11:33 Dose: Infused Dextrose/Lactated Ringer's (Dextrose 5%-Lactated Ringers) 1,000 mls @ 125 mls/hr IV .Q8H ELSA Last Infusion: 08/28/22 11:53 Dose: 125 mls/hr Acetaminophen (Ofirmev) 1,000 mg in 100 mls @ 200 mls/hr IV Q8HP PRN; Protocol PRN Reason: PAIN/FEVER > 101 Last Infusion: 08/28/22 06:18 Dose: Infused Ciprofloxacin (Cipro) 400 mg in 200 mls @ 200 mls/hr IV Q12H ELSA; Protocol Last Infusion: 08/28/22 10:06 Dose: Infused Metronidazole (Flagyl) 500 mg in 100 mls @ 100 mls/hr IV Q8H ELSA; Protocol Insulin Human Lispro (Insulin Lispro 1 Unit/0.01 Ml Unit) 0 unit SQ Q6 ELSA; Protocol Last Admin: 08/28/22 11:03 Dose: Not Given Labetalol HCl (Labetalol 5 Mg/Ml Ml) 10 mg IV Q2HP PRN PRN Reason: Hypertension Last Admin: 08/27/22 19:16 Dose: 10 mg Pantoprazole Sodium (Pantoprazole 40 Mg Vial) 40 mg IV QAMAC ELSA Last Admin: 08/28/22 07:28 Dose: 40 mg A/P Narrative A/P Narrative: Assessment: 67-year-old male with history of recurrent small bowel obstructions, type 2 diabetes mellitus, coronary artery disease, CHF, COPD, hepatitis C, ankylosing spondylitis, BPH, trazodone, obesity admitted for a small bowel obstruction. #Recurrent small bowel obstruction #Microcytic anemia, stable #Hypokalemia #Type 2 diabetes mellitus, stable #Coronary artery disease, stable #COPD, stable #Ankylosing spondylitis #Degenerative joint disease #Chronic pain on opioid therapy #BPH #Insomnia #Obesity BMI 33 Plan -IV fluid, analgesics as needed, serial abdominal exams. -Antibiotics per general surgery. -Abdominal imaging per general surgery. -NG tube management per general surgery. -Potassium replaced. -Iron studies for microcytic anemia. -Correction Humalog SSI every 6 hours while NPO, low-dose. -Protonix IV daily. -Holding home metformin. -Monitor volume status. -Monitor nutritional status, consider TPN if n.p.o. greater than 5 days. -DVT prophylaxis: Heparin SQ. -CODE STATUS: Full. Time Spent With Patient Time: Total time spent is greater than 50% in coordination of care (as documented) at patient's floor/unit and/or counseling patient: QUALITY Stroke Symptom Onset Unknown: No VTE Deep Vein Thrombosis/Pulmonary Embolism Present on Admission: No
[2022-08-28] MEDS ORDERED: 0.9 % SODIUM CHLORIDE 1,000 ML IV SCH (12:15)
[2022-08-28] MEDS ORDERED: morphine 20 MG/ML ORAL.CONC SL PRN (15:21)
[2022-08-28] MEDS ORDERED: HYDROmorphone 0.5 MG/0.5 ML SYRINGE SC PRN (15:25)
[2022-08-28] MEDS: HEPARIN 5,000 UNIT/ML VIAL SQ SCH ×2 (15:54→21:20)
[2022-08-28] MEDS: hydrALAZINE 20 MG/ML VIAL IV PRN (16:16)
--- NOTE | 2022-08-28 16:41 | General Surgery Progress Note ---
SUBJECTIVE Subjective Patient information: Note initiated : 08/28/22 at 7:40am Service Date, if different from initiated Date: [] Patient: Kostas Barrios 67 y/o M admitted on 08/25/22. Chief Complaint: [] Feels well this am, pain has lessened, starting to pass some gas now - CT scan findings from last night reivewed and show resolution of SBO and what looks like an area of active Crohn's disease in the distal ileum. Constitutional Vitals: Vital Signs Temp Pulse Resp BP Pulse Ox O2 Del Method O2 Flow Rate 98.4 F 101 H 18 171/67 97 Room Air 1 08/28/22 16:00 08/28/22 16:00 08/28/22 16:00 08/28/22 16:00 08/28/22 16:00 08/28/22 16:00 08/26/22 12:00 Period Temp Pulse Resp BP Sys/Barry Pulse Ox O2 Del Method O2 Flow Rate Last 24 Hr 98.2 F-98.7 F 91-101 18-20 146-171/66-75 92-98 Room Air-Room Air Intake and Output 08/28/22 08/28/22 08/28/22 03:59 11:59 19:59 Intake Total 1002 1502 172 Output Total 650 340 200 Balance 352 1162 -28 Intake & Output: Intake & Output 08/28/22 08/28/22 08/28/22 03:59 11:59 19:59 Intake Total 1002 1502 172 Output Total 650 340 200 Balance 352 1162 -28 Intake: IV 902 1502 72 Dextrose 5%-Lactated Ringers 1, 452 1002 72 000 ml @ 100 mls/hr IV .Q10H [facility] Rx#:[id number] Zosyn 3.375 gm In Dextrose 5% 50 100 in Water 50 ml @ 100 mls/hr IV Q6H [facility] Rx#:[id number] Oral 100 100 Tube Feeding 0 Output: Gastric Drainage 250 Right Nare 250 Void Amount 400 340 200 Other: Urine Appearance Clear Urine Color Yellow Exam: looks well, non toxic, NAD Respiratory Respiratory exam: Present normal respiratory exam Cardiovascular Cardiovascular exam: Present normal rate and rhythm GI/Abdominal Additional comments: soft, non distended, minimally tender, no peritoneal findings Extremities Exam Additional comments: well perfused A/P Assessment and plan (1) Small bowel obstruction: Assessment and plan: Probable Terminal Ileal Crohn's Disease which may or may not have been but likely were related to presenting bout of SBO Continue present management for now and will discuss management options going forward with medicine - he'll likely need diagnosis and medical management if this indeed is an active area of untreated Crohn's Disease No operative plans at this time Will consider Small Bowel Follow Through on Tuesday to assure enteric flow through this area prior to removing NGT and starting orals Status: Acute (2) IBD (inflammatory bowel disease): Status: Chronic Time Spent With Patient Time: Total time spent is greater than 50% in coordination of care (as documented) at patient's floor/unit and/or counseling patient:
[2022-08-28] MEDS: LABETALOL 5 MG/ML ML IV PRN (17:13)
[2022-08-28] MEDS: ACETAMINOPHEN 1,000 MG/100 ML BAG IV SCH ×2 (17:30→22:42)
[2022-08-29] MEDS: IPRATROPIUM/ALBUTEROL 3 ML AMPUL.NEB NEB SCH ×4 (00:10→18:07)
[2022-08-29] MEDS: HYDROmorphone 1 MG/ML SYRINGE IV PRN ×17 (00:29→23:02)
[2022-08-29] MEDS: BENZOCAINE ONE 20% 1 SPRAY TOPICAL PRN ×2 (02:21→21:40)
[2022-08-29] MEDS: PIPERACILLIN SODIUM/TAZOBACTAM 3.375 GM in DEXTROSE 5% IN WATER 50 ML IV SCH (05:03)
[2022-08-29] MEDS: DEXTROSE 5%-LR 1,000 ML IV SCH ×3 (05:36→17:09)
[2022-08-29] MEDS: metroNIDAZOLE 500 MG/100 ML BAG IV SCH ×3 (05:37→21:17)
[2022-08-29] MEDS: INSULIN LISPRO 1 UNIT/0.01 ML UNIT SQ SCH ×4 (05:41→23:57)
[2022-08-29] MEDS: HEPARIN 5,000 UNIT/ML VIAL SQ SCH ×3 (05:44→22:14)
[2022-08-29 06:38] LABS: Basophils # (Auto) 0.04 K/mcL (0.00-0.30); Basophils % (Auto) 0.5 % (0.0-2.0); Eosinophils # (Auto) 0.54 K/mcL (0.00-0.70); Eosinophils % (Auto) 7.1 % (0.0-7.0); Hematocrit 34.6 % (40.1-51.0); Hemoglobin 10.3 g/dL (13.7-17.5); Lymphocytes # (Auto) 0.99 K/mcL (1.50-4.80); Mean Cell Volume 75.2 fL (80.0-100.0); Mean Corpuscular HGB Conc 29.8 g/dL (31.0-36.0); Mean Platelet Volume 8.6 fL (8.8-12.5); Monocytes # (Auto) 0.57 K/mcL (0.10-0.90); Monocytes % (Auto) 7.5 % (1.0-12.0); Platelet Count 324 K/mcL (140-440); Red Cell Distribution Width 17.7 % (11.5-14.5); WBC 7.6 K/mcL (4.5-11.0)
[2022-08-29] MEDS: PANTOPRAZOLE 40 MG VIAL IV SCH (06:41)
[2022-08-29] MEDS: ACETAMINOPHEN 1,000 MG/100 ML BAG IV SCH ×4 (07:00→22:24)
[2022-08-29 07:08] LABS: ALT/SGPT 12 U/L (<40); AST/SGOT 13 U/L (<40); Albumin 2.9 gm/dL (3.2-5.2); Alkaline Phosphatase 58 U/L (39-117); Bilirubin,Direct < 0.2 mg/dL (0-0.3); Bilirubin,Total 0.3 mg/dL (0.1-1.0); Blood Urea Nitrogen 6 mg/dL (8-23); Calcium 8.7 mg/dL (8.6-10.4); Carbon Dioxide 21 mmol/L (22-30); Chloride 101 mmol/L (96-108); Glomerular Filtration Rate 94; Glucose 103 mg/dL (70-105); Iron 19 ug/dL (61-157); Lactate Dehydrogenase 152 U/L (135-225); Phosphorous 3.3 mg/dL (2.5-4.5); TIBC Calculation 234 ug/dl (228-428); Transferrin % Saturation 8 % (20-50); Triglycerides 112 mg/dL (<150); Uric Acid 2.7 mg/dL (2.5-8.0)
--- NOTE | 2022-08-29 08:45 | General Surgery Progress Note ---
SUBJECTIVE Subjective Patient information: Note initiated : 08/29/22 at 8:41 am Service Date, if different from initiated Date: [] Patient: Kostas Barrios 67 y/o M admitted on 08/25/22. Chief Complaint: [] Continues to feel much improved with increasing passage of gas, no stool yet and pain far less Constitutional Vitals: Vital Signs Temp Pulse Resp BP Pulse Ox O2 Del Method O2 Flow Rate 99.5 F H 96 H 20 160/65 95 Room Air 1 08/29/22 03:45 08/29/22 06:20 08/29/22 06:20 08/29/22 04:15 08/29/22 06:20 08/29/22 06:20 08/26/22 12:00 Period Temp Pulse Resp BP Sys/Barry Pulse Ox O2 Del Method O2 Flow Rate Last 24 Hr 98.2 F-99.5 F 91-102 18-24 154-172/58-69 92-98 Room Air-Room Air Intake and Output 08/28/22 08/29/22 08/29/22 19:59 03:59 11:59 Intake Total 372 1522 250 Output Total 525 1175 Balance -153 347 250 Weight 237 lb 3.2 oz Intake & Output: Intake & Output 08/28/22 08/29/22 08/29/22 19:59 03:59 11:59 Intake Total 372 1522 250 Output Total 525 1175 Balance -153 347 250 Weight 237 lb 3.2 oz Intake: IV 222 1422 250 Dextrose 5%-Lactated Ringers 1, 72 972 000 ml @ 100 mls/hr IV .Q10H [facility] Rx#:[id number] Zosyn 3.375 gm In Dextrose 5% 50 50 50 in Water 50 ml @ 100 mls/hr IV Q6H [facility] Rx#:[id number] Oral 150 100 Tube Feeding 0 0 Output: Gastric Drainage 450 Right Nare 450 Void Amount 525 725 Other: Urine Appearance Clear Clear Urine Color Yellow Yellow Exam: Looks non toxic, no distress GI/Abdominal Additional comments: belly soft and continues to be far less distended - minimal tenderness, NGT functional A/P Assessment and plan (1) Small bowel obstruction: Assessment and plan: Resolved SBO Probable Active Crohn's Disease of the Distal Ileum Check SBFT tomorrow via NGT to assure unimpeded passage through the impacted segment prior to NGT removal and initiation of clears Increase activity and will D/C Zosyn this AM Status: Acute (2) IBD (inflammatory bowel disease): Status: Chronic Time Spent With Patient Time: Total time spent is greater than 50% in coordination of care (as documented) at patient's floor/unit and/or counseling patient:
[2022-08-29] MEDS: CIPROFLOXACIN 400 MG/200 ML BAG IV SCH ×2 (09:44→20:12)
--- NOTE | 2022-08-29 09:53 | Internal Med Progress Note ---
SUBJECTIVE Subjective Patient information: Note initiated : 08/29/22 at 9:49 am Service Date, if different from initiated Date: [] Patient: Kostas Barrios 67 y/o M admitted on 08/25/22. Chief Complaint: [] Interval history: Patient is a 67 years old male with diabetes mellitus 2, CAD, COPD, DJD, hepatitis C, ankylosing spondylitis, rheumatoid arthritis on prednisone, vitamin D deficiency has history of multiple recurrent small bowel obstructions, prior bowel perforation requiring partial colectomy and small bowel removal presented with acute onset of diffuse abdominal pain, nausea and vomiting since morning. Patient states it is similar to his prior bowel obstruction. Patient reported his last bowel obstruction was around 6 months ago when he was admitted in [place] this resolved with nonoperative management. Patient reports usually he does not require any supplemental oxygen for COPD but on ambulation up to 2 L he needs. His reported patient has had at least around [address] scan abdomen showed distal small bowel obstruction and proximal ileum. Patient was tachycardic, blood pressure was elevated 186/111 suspect due to pain. Labs showed WBC 21.5, hemoglobin 13.4. Lactic acid 3.6. Renal functions and electrolytes stable, glucose 230. 08/26. Patient feels much improved. Pain has significantly improved. No nausea or vomiting, has not passed flatus or has no bowel movement. 08/27. Patient reports abdominal pain is almost the same. Nursing staff reported NG output of about 800 cc. Not passing gas or flatus. No bowel movement. No leukocytosis, no fever. Surgery following. 08/28. Patient says he is passing gas but has not had a bowel movement yet. Abdomen soft, tenderness mostly in left abdominal quadrant. Low potassium today, replaced. Continues on NG tube to suction per general surgery. 08/29 No significant events reported overnight. Yesterday the patient lost IV access, replaced. Discussed the patient with Dr. Cosby, he is concerned the patient may have undiagnosed Crohn's disease given the thickened ileum. Patient seems to be passing more gas today, continue IV fluid, n.p.o. for surgery, surgery planning for small bowel follow-through tomorrow via NG tube. Replaced potassium. Physical exam Head: Atraumatic, normal inspection. Eyes: normal appearance, no scleral icterus. Neck: full ROM Respiratory: no respiratory distress. Cardiovascular: normal rate and rhythm, S1, S2. GI/Abdominal: Nasogastric tube present, nondistended, soft, tenderness in left quadrant, no guarding. Extremities: full range of motion, nontender. Neurological: CN II-XII intact, intact motor, intact sensation. Psychiatric: normal mood. Skin: warm, normal color Constitutional Vitals: Vital Signs Temp Pulse Resp BP Pulse Ox O2 Del Method O2 Flow Rate 99.5 F H 96 H 20 160/65 95 Room Air 1 08/29/22 03:45 08/29/22 06:20 08/29/22 06:20 08/29/22 04:15 08/29/22 06:20 08/29/22 06:20 08/26/22 12:00 Period Temp Pulse Resp BP Sys/Barry Pulse Ox O2 Del Method O2 Flow Rate Last 24 Hr 98.2 F-99.5 F 91-102 18-24 154-172/58-69 92-98 Room Air-Room Air Intake and Output 08/28/22 08/29/22 08/29/22 19:59 03:59 11:59 Intake Total 372 1522 250 Output Total 525 1175 Balance -153 347 250 Weight 107.592 kg Intake & Output: Intake & Output 08/28/22 08/29/22 08/29/22 19:59 03:59 11:59 Intake Total 372 1522 250 Output Total 525 1175 Balance -153 347 250 Weight 107.592 kg Intake: IV 222 1422 250 Dextrose 5%-Lactated Ringers 1, 72 972 000 ml @ 100 mls/hr IV .Q10H [facility] Rx#:[id number] Zosyn 3.375 gm In Dextrose 5% 50 50 50 in Water 50 ml @ 100 mls/hr IV Q6H [facility]SA Rx#:[id number] Oral 150 100 Tube Feeding 0 0 Output: Gastric Drainage 450 Right Nare 450 Void Amount 525 725 Other: Urine Appearance Clear Clear Urine Color Yellow Yellow OBJ DATA Labs 08/29/22 05:14 08/29/22 05:14 Labs: Abnormal Lab Results 08/29/22 08/29/22 08/28/22 05:14 05:14 05:28 RBC 4.60 L Hgb 10.3 L Hct 34.6 L MCV 75.2 L MCH 22.4 L MCHC 29.8 L RDW 17.7 H MPV 8.6 L Immature Gran % (Auto) 0.9 H Lymph % (Auto) 13.0 L Eos % (Auto) 7.1 H Lymph # (Auto) 0.99 L Immature Gran # 0.07 H Sodium 132 L Potassium 3.2 L 3.2 L Carbon Dioxide 21 L BUN 6 L 7 L Creatinine Glucose 114 H Calcium Iron 19 L Transferrin % Sat 8 L Albumin 2.9 L 08/28/22 08/27/22 08/27/22 05:28 06:16 06:16 RBC 4.52 L Hgb 10.3 L 10.3 L Hct 34.1 L 35.6 L MCV 75.4 L 75.7 L MCH 22.8 L 21.9 L MCHC 30.2 L 28.9 L RDW 17.8 H 18.0 H MPV 8.5 L Immature Gran % (Auto) Lymph % (Auto) Eos % (Auto) Lymph # (Auto) Immature Gran # Sodium Potassium Carbon Dioxide BUN Creatinine 0.6 L Glucose 149 H Calcium 8.4 L Iron Transferrin % Sat Albumin Meds: Medications Albuterol/Ipratropium (Ipratropium/Albuterol 3 Ml Ampul.Neb) 3 ml NEB Q6HRT ELSA Last Admin: 08/29/22 06:19 Dose: 3 ml Benzocaine (Benzocaine 20% 1 [place] Each) 1 spray TOPICAL Q4HP PRN PRN Reason: NG TUBE Last Admin: 08/29/22 02:21 Dose: 1 spray Dextrose (Dextrose 50% 50 Ml Vial) 0 ml IV UD PRN PRN Reason: Hypoglycemia Diagnostic Test (Pha) (Accu-Chek 1 Each Strip) 1 each FS Q6 ELSA Last Admin: 08/29/22 05:40 Dose: 1 each Heparin Sodium (Porcine) (Heparin 5,000 Unit/Ml Vial) 5,000 unit SQ Q8 ELSA Last Admin: 08/29/22 05:44 Dose: 5,000 unit Hydralazine HCl (Hydralazine 20 Mg/Ml Vial) 10 mg IV Q6HP PRN PRN Reason: Hypertension Last Admin: 08/28/22 16:16 Dose: 10 mg Hydromorphone HCl (Hydromorphone 1 Mg/Ml Syringe) 0.5 - 1 mg IV Q1HP PRN; Protocol PRN Reason: Per Pain Protocol Last Admin: 08/29/22 09:44 Dose: 1 mg Ciprofloxacin (Cipro) 400 mg in 200 mls @ 200 mls/hr IV Q12H ELSA; Protocol Last Admin: 08/29/22 09:44 Dose: 200 mls/hr Metronidazole (Flagyl) 500 mg in 100 mls @ 100 mls/hr IV Q8H ELSA; Protocol Last Infusion: 08/29/22 07:01 Dose: Infused Dextrose/Lactated Ringer's (Dextrose 5%-Lactated Ringers) 1,000 mls @ 100 mls/hr IV .Q10H ELSA Last Admin: 08/29/22 07:02 Dose: Not Given Acetaminophen (Ofirmev) 1,000 mg in 100 mls @ 200 mls/hr IV Q8 ELSA; Protocol Last Infusion: 08/29/22 07:39 Dose: Infused Potassium Phosphate 20 meq/ (Dextrose) 254.5455 mls @ 127.273 mls/hr IV ONCE ONE Stop: 08/29/22 11:59 Insulin Human Lispro (Insulin Lispro 1 Unit/0.01 Ml Unit) 0 unit SQ Q6 ELSA; Protocol Last Admin: 08/29/22 05:41 Dose: Not Given Labetalol HCl (Labetalol 5 Mg/Ml Ml) 10 mg IV Q2HP PRN PRN Reason: Hypertension Last Admin: 08/28/22 17:13 Dose: 10 mg Pantoprazole Sodium (Pantoprazole 40 Mg Vial) 40 mg IV QAMAC ELSA Last Admin: 08/29/22 06:41 Dose: 40 mg A/P Narrative A/P Narrative: Assessment: 67-year-old male with history of recurrent small bowel obstructions, type 2 diabetes mellitus, coronary artery disease, CHF, COPD, hepatitis C, ankylosing spondylitis, BPH, trazodone, obesity admitted for a small bowel obstruction. #Recurrent small bowel obstruction #Microcytic anemia, stable (iron studies consistent with chronic inflammation) #Hypokalemia #Type 2 diabetes mellitus, stable #Coronary artery disease, stable #COPD, stable #Ankylosing spondylitis #Degenerative joint disease #Chronic pain on opioid therapy #BPH #Insomnia #Obesity BMI 33 Plan -IV fluid, analgesics as needed, serial abdominal exams. -Antibiotics per general surgery. -Abdominal imaging per general surgery, small bowel follow-through tomorrow. -NG tube management per general surgery. -Potassium replaced. -Correction Humalog SSI every 6 hours while NPO, low-dose. -Protonix IV daily. -Holding home metformin. -Monitor volume status. -Monitor nutritional status, consider TPN if n.p.o. greater than 5 days. -DVT prophylaxis: Heparin SQ. -CODE STATUS: Full. Time Spent With Patient Time: Total time spent is greater than 50% in coordination of care (as documented) at patient's floor/unit and/or counseling patient: QUALITY Stroke Symptom Onset Unknown: No VTE Deep Vein Thrombosis/Pulmonary Embolism Present on Admission: No
[2022-08-29] MEDS ORDERED: POTASSIUM PHOSPHATE 20 MEQ in DEXTROSE 5% IN WATER 250 ML IV ONE (10:00)
[2022-08-29] MEDS: hydrALAZINE 20 MG/ML VIAL IV PRN (19:26)
[2022-08-29] MEDS: LABETALOL 5 MG/ML ML IV PRN (21:00)
[2022-08-30] MEDS: HYDROmorphone 1 MG/ML SYRINGE IV PRN ×14 (00:03→23:44)
[2022-08-30] MEDS: DEXTROSE 5%-LR 1,000 ML IV SCH ×3 (01:57→14:43)
[2022-08-30] MEDS: metroNIDAZOLE 500 MG/100 ML BAG IV SCH ×3 (05:04→22:20)
[2022-08-30] MEDS: INSULIN LISPRO 1 UNIT/0.01 ML UNIT SQ SCH ×4 (05:18→23:53)
[2022-08-30] MEDS: HEPARIN 5,000 UNIT/ML VIAL SQ SCH ×3 (06:11→21:54)
[2022-08-30] MEDS: ACETAMINOPHEN 1,000 MG/100 ML BAG IV SCH ×3 (06:17→21:59)
[2022-08-30] MEDS: IPRATROPIUM/ALBUTEROL 3 ML AMPUL.NEB NEB SCH ×4 (06:55→18:49)
[2022-08-30 07:22] LABS: ALT/SGPT 11 U/L (<40); AST/SGOT 14 U/L (<40); Albumin 3.1 gm/dL (3.2-5.2); Albumin/Globulin Ratio 1.1 (1.0-2.3); Alkaline Phosphatase 58 U/L (39-117); Bilirubin,Direct < 0.2 mg/dL (0-0.3); Bilirubin,Total 0.2 mg/dL (0.1-1.0); Blood Urea Nitrogen 4 mg/dL (8-23); Calcium 8.6 mg/dL (8.6-10.4); Carbon Dioxide 21 mmol/L (22-30); Chloride 106 mmol/L (96-108); Globulin 2.7 gm/dL (2.2-3.7); Glomerular Filtration Rate 99; Glucose 112 mg/dL (70-105); Lactate Dehydrogenase 159 U/L (135-225); Triglycerides 105 mg/dL (<150); Uric Acid 3.4 mg/dL (2.5-8.0)
[2022-08-30] MEDS: CIPROFLOXACIN 400 MG/200 ML BAG IV SCH ×3 (10:19→20:35)
[2022-08-30] MEDS: PANTOPRAZOLE 40 MG VIAL IV SCH (10:20)
--- NOTE | 2022-08-30 10:27 | Internal Med Progress Note ---
SUBJECTIVE Subjective Patient information: Note initiated : 08/30/22 at 10:24 am Service Date, if different from initiated Date: [] Patient: Kostas Barrios 67 y/o M admitted on 08/25/22. Chief Complaint: [] Interval history: Patient is a 67 years old male with diabetes mellitus 2, CAD, COPD, DJD, hepatitis C, ankylosing spondylitis, rheumatoid arthritis on prednisone, vitamin D deficiency has history of multiple recurrent small bowel obstructions, prior bowel perforation requiring partial colectomy and small bowel removal presented with acute onset of diffuse abdominal pain, nausea and vomiting since morning. Patient states it is similar to his prior bowel obstruction. Patient reported his last bowel obstruction was around 6 months ago when he was admitted in [place] this resolved with nonoperative management. Patient reports usually he does not require any supplemental oxygen for COPD but on ambulation up to 2 L he needs. His reported patient has had at least around [address] scan abdomen showed distal small bowel obstruction and proximal ileum. Patient was tachycardic, blood pressure was elevated 186/111 suspect due to pain. Labs showed WBC 21.5, hemoglobin 13.4. Lactic acid 3.6. Renal functions and electrolytes stable, glucose 230. 08/26. Patient feels much improved. Pain has significantly improved. No nausea or vomiting, has not passed flatus or has no bowel movement. 08/27. Patient reports abdominal pain is almost the same. Nursing staff reported NG output of about 800 cc. Not passing gas or flatus. No bowel movement. No leukocytosis, no fever. Surgery following. 08/28. Patient says he is passing gas but has not had a bowel movement yet. Abdomen soft, tenderness mostly in left abdominal quadrant. Low potassium today, replaced. Continues on NG tube to suction per general surgery. 08/29 No significant events reported overnight. Yesterday the patient lost IV access, replaced. Discussed the patient with Dr. Cosby, he is concerned the patient may have undiagnosed Crohn's disease given the thickened ileum. Patient seems to be passing more gas today, continue IV fluid, n.p.o. for surgery, surgery planning for small bowel follow-through tomorrow via NG tube. Replaced potassium. 08/30 No significant events reported overnight. Patient continues to report passing gas, no bowel movement yet. Small bowel follow-through today per surgery. Potassium low normal today. Fecal calprotectin ordered, it is a send out lab. Physical exam Head: Atraumatic, normal inspection. Eyes: normal appearance, no scleral icterus. Neck: full ROM Respiratory: no respiratory distress. Cardiovascular: normal rate and rhythm, S1, S2. GI/Abdominal: Nasogastric tube present, nondistended, soft, tenderness in left quadrant, no guarding. Extremities: full range of motion, nontender. Neurological: CN II-XII intact, intact motor, intact sensation. Psychiatric: normal mood. Skin: warm, normal color Constitutional Vitals: Vital Signs Temp Pulse Resp BP Pulse Ox O2 Del Method O2 Flow Rate 98.4 F 97 H 18 158/69 97 Room Air 1 08/30/22 07:56 08/30/22 07:56 08/30/22 07:56 08/30/22 07:56 08/30/22 07:56 08/30/22 07:56 08/26/22 12:00 Period Temp Pulse Resp BP Sys/Barry Pulse Ox O2 Del Method O2 Flow Rate Last 24 Hr 97.5 F-98.4 F 96-106 16-24 155-188/65-76 95-98 Room Air-Room Air Intake and Output 08/29/22 08/30/22 08/30/22 19:59 03:59 11:59 Intake Total 1504.5455 1455 100 Output Total 800 2125 400 Balance 704.5455 -670 -300 Weight 103.827 kg Intake & Output: Intake & Output 08/29/22 08/30/22 08/30/22 19:59 03:59 11:59 Intake Total 1504.5455 1455 100 Output Total 800 2125 400 Balance 704.5455 -670 -300 Weight 103.827 kg Intake: IV 1454.5455 1280 100 Dextrose 5%-Lactated Ringers 1, 1000 880 000 ml @ 100 mls/hr IV .Q10H [facility] Rx#:[id number] Potassium Phosphate 20 Meq In 254.5455 Dextrose 5% in Water 250 ml @ 127.273 mls/hr IV ONCE ONE Rx#: [id number] Oral 50 175 Tube Feeding 0 Output: Gastric Drainage 250 400 NG/OG 250 Right Nare 400 Void Amount 550 1725 200 Emesis 200 Other: Urine Appearance Clear Clear Clear Urine Color Yellow Yellow Yellow Urine Odor Normal OBJ DATA Labs 08/29/22 05:14 08/30/22 06:01 Labs: Abnormal Lab Results 08/30/22 08/29/22 08/29/22 06:01 05:14 05:14 RBC 4.60 L Hgb 10.3 L Hct 34.6 L MCV 75.2 L MCH 22.4 L MCHC 29.8 L RDW 17.7 H MPV 8.6 L Immature Gran % (Auto) 0.9 H Lymph % (Auto) 13.0 L Eos % (Auto) 7.1 H Lymph # (Auto) 0.99 L Immature Gran # 0.07 H Sodium 132 L Potassium 3.2 L Carbon Dioxide 21 L 21 L BUN 4 L 6 L Glucose 112 H Iron 19 L Transferrin % Sat 8 L Total Protein 5.8 L Albumin 3.1 L 2.9 L 08/28/22 08/28/22 05:28 05:28 RBC 4.52 L Hgb 10.3 L Hct 34.1 L MCV 75.4 L MCH 22.8 L MCHC 30.2 L RDW 17.8 H MPV 8.5 L Immature Gran % (Auto) Lymph % (Auto) Eos % (Auto) Lymph # (Auto) Immature Gran # Sodium Potassium 3.2 L Carbon Dioxide BUN 7 L Glucose 114 H Iron Transferrin % Sat Total Protein Albumin Meds: Medications Albuterol/Ipratropium (Ipratropium/Albuterol 3 Ml Ampul.Neb) 3 ml NEB Q6HRT [facility] Last Admin: 08/30/22 06:55 Dose: 3 ml Benzocaine (Benzocaine 20% 1 [place] Each) 1 spray TOPICAL Q4HP PRN PRN Reason: NG TUBE Last Admin: 08/29/22 21:40 Dose: 1 spray Dextrose (Dextrose 50% 50 Ml Vial) 0 ml IV UD PRN PRN Reason: Hypoglycemia Diagnostic Test (Pha) (Accu-Chek 1 Each Strip) 1 each FS Q6 [facility] Last Admin: 08/30/22 05:18 Dose: 1 each Heparin Sodium (Porcine) (Heparin 5,000 Unit/Ml Vial) 5,000 unit SQ Q8 [facility] Last Admin: 08/30/22 06:11 Dose: 5,000 unit Hydralazine HCl (Hydralazine 20 Mg/Ml Vial) 10 mg IV Q6HP PRN PRN Reason: Hypertension Last Admin: 08/29/22 19:26 Dose: 10 mg Hydromorphone HCl (Hydromorphone 1 Mg/Ml Syringe) 0.5 - 1 mg IV Q1HP PRN; Protocol PRN Reason: Per Pain Protocol Last Admin: 08/30/22 10:20 Dose: 1 mg Ciprofloxacin (Cipro) 400 mg in 200 mls @ 200 mls/hr IV Q12H [facility]; Protocol Last Admin: 08/30/22 10:19 Dose: 200 mls/hr Metronidazole (Flagyl) 500 mg in 100 mls @ 100 mls/hr IV Q8H [facility]; Protocol Last Infusion: 08/30/22 06:12 Dose: Infused Dextrose/Lactated Ringer's (Dextrose 5%-Lactated Ringers) 1,000 mls @ 100 mls/hr IV .Q10H [facility] Last Admin: 08/30/22 04:15 Dose: Not Given Acetaminophen (Ofirmev) 1,000 mg in 100 mls @ 200 mls/hr IV Q8 [facility]; Protocol Last Admin: 08/30/22 06:17 Dose: 200 mls/hr Insulin Human Lispro (Insulin Lispro 1 Unit/0.01 Ml Unit) 0 unit SQ Q6 [facility]; Protocol Last Admin: 08/30/22 05:18 Dose: Not Given Labetalol HCl (Labetalol 5 Mg/Ml Ml) 10 mg IV Q2HP PRN PRN Reason: Hypertension Last Admin: 08/29/22 21:00 Dose: 10 mg Pantoprazole Sodium (Pantoprazole 40 Mg Vial) 40 mg IV QAMAC [facility] Last Admin: 08/30/22 10:20 Dose: 40 mg A/P Narrative A/P Narrative: Assessment: 67-year-old male with history of recurrent small bowel obstructions, type 2 diabetes mellitus, coronary artery disease, CHF, COPD, hepatitis C, ankylosing spondylitis, BPH, trazodone, obesity admitted for a small bowel obstruction. #Recurrent small bowel obstruction #Distal ileum thickening per CT scan #Microcytic anemia, stable (iron studies consistent with chronic inflammation) #Resolved hypokalemia #Type 2 diabetes mellitus, stable #Coronary artery disease, stable #COPD, stable #Ankylosing spondylitis #Degenerative joint disease #Chronic pain on opioid therapy #BPH #Insomnia #Obesity BMI 33 Plan -IV fluid, analgesics as needed, serial abdominal exams. -Antibiotics per general surgery. -Abdominal imaging per general surgery, small bowel follow-through today. -NG tube management per general surgery. -Concern for possible Crohn's disease, ordered fecal calprotectin. -Monitor and replace electrolytes as needed. -Correction Humalog SSI every 6 hours while NPO, low-dose. -Protonix IV daily. -Holding home metformin. -Monitor volume status. -Monitor nutritional status, consider TPN if n.p.o. greater than 5 days. -DVT prophylaxis: Heparin SQ. -CODE STATUS: Full. Time Spent With Patient Time: Total time spent is greater than 50% in coordination of care (as documented) at patient's floor/unit and/or counseling patient: QUALITY Stroke Symptom Onset Unknown: No VTE Deep Vein Thrombosis/Pulmonary Embolism Present on Admission: No
[2022-08-30] MEDS ORDERED: DIATRIZOATE MEGLU/DIATRIZO SOD 120 ML BOTTLE PO ONE (10:45)
--- NOTE | 2022-08-30 11:10 | General Surgery Progress Note ---
SUBJECTIVE Subjective Patient information: Note initiated : 08/30/22 at 11:04 am Service Date, if different from initiated Date: [] Patient: Kostas Barrios 67 y/o M admitted on 08/25/22. Chief Complaint: [] Continues to feel improved this am, passing gas and having stools. Pain continues to be significantly less. NGT remains in place Constitutional Vitals: Vital Signs Temp Pulse Resp BP Pulse Ox O2 Del Method O2 Flow Rate 98.4 F 97 H 18 158/69 97 Room Air 1 08/30/22 07:56 08/30/22 07:56 08/30/22 07:56 08/30/22 07:56 08/30/22 07:56 08/30/22 07:56 08/26/22 12:00 Period Temp Pulse Resp BP Sys/Barry Pulse Ox O2 Del Method O2 Flow Rate Last 24 Hr 97.5 F-98.4 F 96-106 16-24 155-188/65-76 95-98 Room Air-Room Air Intake and Output 08/29/22 08/30/22 08/30/22 19:59 03:59 11:59 Intake Total 1504.5455 1455 100 Output Total 800 2125 400 Balance 704.5455 -670 -300 Weight 228 lb 14.4 oz Intake & Output: Intake & Output 08/29/22 08/30/22 08/30/22 19:59 03:59 11:59 Intake Total 1504.5455 1455 100 Output Total 800 2125 400 Balance 704.5455 -670 -300 Weight 228 lb 14.4 oz Intake: IV 1454.5455 1280 100 Dextrose 5%-Lactated Ringers 1, 1000 880 000 ml @ 100 mls/hr IV .Q10H [facility] Rx#:[id number] Potassium Phosphate 20 Meq In 254.5455 Dextrose 5% in Water 250 ml @ 127.273 mls/hr IV ONCE ONE Rx#: [id number] Oral 50 175 Tube Feeding 0 Output: Gastric Drainage 250 400 NG/OG 250 Right Nare 400 Void Amount 550 1725 200 Emesis 200 Other: Urine Appearance Clear Clear Clear Urine Color Yellow Yellow Yellow Urine Odor Normal Exam: Looks well, NAD, non toxic Respiratory Respiratory exam: Present normal respiratory exam Cardiovascular Cardiovascular exam: Present normal rate and rhythm GI/Abdominal Additional comments: belly soft, non tender, non distended, NGT in place Extremities Exam Additional comments: well perfused A/P Assessment and plan (1) Small bowel obstruction: Assessment and plan: Resolving Small Bowel Obstruction with possible undiagnosed Crohn's Check SBFT today and if there is no obstruction through that segment will remove NGT and start Clears Await SBFT results Status: Acute Time Spent With Patient Time: Total time spent is greater than 50% in coordination of care (as documented) at patient's floor/unit and/or counseling patient:
--- NOTE | 2022-08-30 12:29 | XRay Report ---
CLINICAL INFORMATION: eval distal small bowel and transit to colon. History resolved distal small bowel obstruction. COMPARISON: Abdomen and pelvic CT 08/27/2022. TECHNIQUE: Following computer graphic artist imaging, Gastrografin was infused into the indwelling NG tube and serial x-ray was obtained the abdomen and pelvis for 60 minutes. FINDINGS: The stomach is normal in size and configuration with normal rugal folds. Duodenum, jejunum and ileum are also normal in contour and caliber leg. Small bowel transit time is approximately 45 minutes. No evidence of obstruction IMPRESSION: Negative-no evidence of obstruction. Small bowel transit time proximate 45 minutes Interpreted and Authenticated by: Guy Yeh 08/30/22
[2022-08-31] MEDS: IPRATROPIUM/ALBUTEROL 3 ML AMPUL.NEB NEB SCH ×4 (01:02→18:07)
[2022-08-31] MEDS: DEXTROSE 5%-LR 1,000 ML IV SCH ×3 (01:03→18:59)
[2022-08-31] MEDS: HYDROmorphone 1 MG/ML SYRINGE IV PRN ×7 (01:25→17:52)
[2022-08-31] MEDS: ACETAMINOPHEN 1,000 MG/100 ML BAG IV SCH (05:41)
[2022-08-31] MEDS: INSULIN LISPRO 1 UNIT/0.01 ML UNIT SQ SCH ×3 (05:44→18:44)
[2022-08-31] MEDS: HEPARIN 5,000 UNIT/ML VIAL SQ SCH ×3 (05:48→21:41)
[2022-08-31] MEDS: metroNIDAZOLE 500 MG/100 ML BAG IV SCH ×3 (06:46→21:41)
[2022-08-31 08:00] LABS: ALT/SGPT 11 U/L (<40); AST/SGOT 16 U/L (<40); Albumin 2.8 gm/dL (3.2-5.2); Alkaline Phosphatase 54 U/L (39-117); Bilirubin,Direct < 0.2 mg/dL (0-0.3); Bilirubin,Total < 0.2 mg/dL (0.1-1.0); Blood Urea Nitrogen 3 mg/dL (8-23); Calcium 8.2 mg/dL (8.6-10.4); Carbon Dioxide 22 mmol/L (22-30); Chloride 107 mmol/L (96-108); Globulin 2.7 gm/dL (2.2-3.7); Glomerular Filtration Rate 99; Glucose 125 mg/dL (70-105); Lactate Dehydrogenase 160 U/L (135-225); Phosphorous 3.1 mg/dL (2.5-4.5); Triglycerides 123 mg/dL (<150)
[2022-08-31] MEDS: PANTOPRAZOLE 40 MG VIAL IV SCH (08:00)
[2022-08-31] MEDS: CIPROFLOXACIN 400 MG/200 ML BAG IV SCH ×2 (08:00→20:21)
--- NOTE | 2022-08-31 11:33 | Internal Med Progress Note ---
SUBJECTIVE Subjective Patient information: Note initiated : 08/31/22 at 11:33 am Service Date, if different from initiated Date: [] Patient: Kostas Barrios 67 y/o M admitted on 08/25/22. Chief Complaint: [] Interval history: Patient is a 67 years old male with diabetes mellitus 2, CAD, COPD, DJD, hepatitis C, ankylosing spondylitis, rheumatoid arthritis on prednisone, vitamin D deficiency has history of multiple recurrent small bowel obstructions, prior bowel perforation requiring partial colectomy and small bowel removal presented with acute onset of diffuse abdominal pain, nausea and vomiting since morning. Patient states it is similar to his prior bowel obstruction. Patient reported his last bowel obstruction was around 6 months ago when he was admitted in [place] this resolved with nonoperative management. Patient reports usually he does not require any supplemental oxygen for COPD but on ambulation up to 2 L he needs. His reported patient has had at least around [address] scan abdomen showed distal small bowel obstruction and proximal ileum. Patient was tachycardic, blood pressure was elevated 186/111 suspect due to pain. Labs showed WBC 21.5, hemoglobin 13.4. Lactic acid 3.6. Renal functions and electrolytes stable, glucose 230. 08/26. Patient feels much improved. Pain has significantly improved. No nausea or vomiting, has not passed flatus or has no bowel movement. 08/27. Patient reports abdominal pain is almost the same. Nursing staff reported NG output of about 800 cc. Not passing gas or flatus. No bowel movement. No leukocytosis, no fever. Surgery following. 08/28. Patient says he is passing gas but has not had a bowel movement yet. Abdomen soft, tenderness mostly in left abdominal quadrant. Low potassium today, replaced. Continues on NG tube to suction per general surgery. 08/29 No significant events reported overnight. Yesterday the patient lost IV access, replaced. Discussed the patient with Dr. Cosby, he is concerned the patient may have undiagnosed Crohn's disease given the thickened ileum. Patient seems to be passing more gas today, continue IV fluid, n.p.o. for surgery, surgery planning for small bowel follow-through tomorrow via NG tube. Replaced potassium. 08/30 No significant events reported overnight. Patient continues to report passing gas, no bowel movement yet. Small bowel follow-through today per surgery. Potassium low normal today. Fecal calprotectin ordered, it is a send out lab. 08/31 Vital stable overnight, small bowel follow-through did not show any obstruction. Tolerating diet well. Discontinued IV fluid. Resume home diltiazem, Lasix, Advair, Prilosec, prednisone, Flomax, trazodone at bedtime. NG tube removed. Physical exam Head: Atraumatic, normal inspection. Eyes: normal appearance, no scleral icterus. Neck: full ROM Respiratory: no respiratory distress. Cardiovascular: normal rate and rhythm, S1, S2. GI/Abdominal: Nasogastric tube present, nondistended, soft, tenderness in left quadrant, no guarding. Extremities: full range of motion, nontender. Neurological: CN II-XII intact, intact motor, intact sensation. Psychiatric: normal mood. Skin: warm, normal color Constitutional Vitals: Vital Signs Temp Pulse Resp BP Pulse Ox O2 Del Method O2 Flow Rate 97.9 F 93 H 20 149/67 97 Room Air 1 08/31/22 11:16 08/31/22 11:16 08/31/22 11:16 08/31/22 11:16 08/31/22 11:16 08/31/22 11:16 08/26/22 12:00 Period Temp Pulse Resp BP Sys/Barry Pulse Ox O2 Del Method O2 Flow Rate Last 24 Hr 97.5 F-98.3 F 93-115 16-24 147-162/65-86 95-98 Room Air-Room Air Intake and Output 08/30/22 08/31/22 08/31/22 19:59 03:59 11:59 Intake Total 200 1415 1100 Output Total 700 Balance 004 475 4501 Weight 103.464 kg Intake & Output: Intake & Output 08/30/22 08/31/22 08/31/22 19:59 03:59 11:59 Intake Total 200 1415 1100 Output Total 700 Balance 144 784 3435 Weight 103.464 kg Intake: IV 200 1095 1100 Dextrose 5%-Lactated Ringers 1, 695 1000 000 ml @ 100 mls/hr IV .Q10H [facility] Rx#:[id number] Oral 320 Output: Void Amount 700 Other: Urine Appearance Clear Urine Color Yellow Yellow Stool Size Small Stool Color Brown Stool Consistency Liquid Watery Loose # Voids 1 # Bowel Movements 1 OBJ DATA Labs 08/29/22 05:14 08/31/22 06:02 Labs: Abnormal Lab Results 08/31/22 08/30/22 08/29/22 06:02 06:01 05:14 RBC 4.60 L Hgb 10.3 L Hct 34.6 L MCV 75.2 L MCH 22.4 L MCHC 29.8 L RDW 17.7 H MPV 8.6 L Immature Gran % (Auto) 0.9 H Lymph % (Auto) 13.0 L Eos % (Auto) 7.1 H Lymph # (Auto) 0.99 L Immature Gran # 0.07 H Sodium Potassium Carbon Dioxide 21 L BUN 3 L 4 L Glucose 125 H 112 H Calcium 8.2 L Iron Transferrin % Sat Total Protein 5.5 L 5.8 L Albumin 2.8 L 3.1 L 08/29/22 05:14 RBC Hgb Hct MCV MCH MCHC RDW MPV Immature Gran % (Auto) Lymph % (Auto) Eos % (Auto) Lymph # (Auto) Immature Gran # Sodium 132 L Potassium 3.2 L Carbon Dioxide 21 L BUN 6 L Glucose Calcium Iron 19 L Transferrin % Sat 8 L Total Protein Albumin 2.9 L Meds: Medications Albuterol/Ipratropium (Ipratropium/Albuterol 3 Ml Ampul.Neb) 3 ml NEB Q6HRT [facility] Last Admin: 08/31/22 06:50 Dose: 3 ml Benzocaine (Benzocaine 20% 1 [place] Each) 1 spray TOPICAL Q4HP PRN PRN Reason: NG TUBE Last Admin: 08/29/22 21:40 Dose: 1 spray Dextrose (Dextrose 50% 50 Ml Vial) 0 ml IV UD PRN PRN Reason: Hypoglycemia Diagnostic Test (Pha) (Accu-Chek 1 Each Strip) 1 each FS Q6 [facility] Last Admin: 08/31/22 05:41 Dose: 1 each Heparin Sodium (Porcine) (Heparin 5,000 Unit/Ml Vial) 5,000 unit SQ Q8 [facility] Last Admin: 08/31/22 05:48 Dose: 5,000 unit Hydralazine HCl (Hydralazine 20 Mg/Ml Vial) 10 mg IV Q6HP PRN PRN Reason: Hypertension Last Admin: 08/29/22 19:26 Dose: 10 mg Hydromorphone HCl (Hydromorphone 1 Mg/Ml Syringe) 0.5 - 1 mg IV Q1HP PRN; Protocol PRN Reason: Per Pain Protocol Last Admin: 08/31/22 09:44 Dose: 1 mg Ciprofloxacin (Cipro) 400 mg in 200 mls @ 200 mls/hr IV Q12H [facility]; Protocol Last Admin: 08/31/22 08:00 Dose: 200 mls/hr Metronidazole (Flagyl) 500 mg in 100 mls @ 100 mls/hr IV Q8H [facility]; Protocol Last Admin: 08/31/22 06:46 Dose: 100 mls/hr Dextrose/Lactated Ringer's (Dextrose 5%-Lactated Ringers) 1,000 mls @ 100 mls/hr IV .Q10H [facility] Last Admin: 08/31/22 06:00 Dose: 100 mls/hr Acetaminophen (Ofirmev) 1,000 mg in 100 mls @ 200 mls/hr IV Q8 [facility]; Protocol Last Infusion: 08/31/22 06:15 Dose: Infused Insulin Human Lispro (Insulin Lispro 1 Unit/0.01 Ml Unit) 0 unit SQ Q6 [facility]; Protocol Last Admin: 08/31/22 05:44 Dose: Not Given Labetalol HCl (Labetalol 5 Mg/Ml Ml) 10 mg IV Q2HP PRN PRN Reason: Hypertension Last Admin: 08/29/22 21:00 Dose: 10 mg Pantoprazole Sodium (Pantoprazole 40 Mg Vial) 40 mg IV QAMAC [facility] Last Admin: 08/31/22 08:00 Dose: 40 mg A/P Narrative A/P Narrative: Assessment: 67-year-old male with history of recurrent small bowel obstructions, type 2 diabetes mellitus, coronary artery disease, CHF, COPD, hepatitis C, ankylosing spondylitis, BPH, trazodone, obesity admitted for a small bowel obstruction. #Recurrent small bowel obstruction #Distal ileum thickening per CT scan #Microcytic anemia, stable (iron studies consistent with chronic inflammation) #Resolved hypokalemia #Type 2 diabetes mellitus, stable #Coronary artery disease, stable #COPD, stable #Ankylosing spondylitis #Degenerative joint disease #Chronic pain on opioid therapy #BPH #Insomnia #Obesity BMI 33 Plan -Analgesics as needed. -Antibiotics per general surgery. -Discontinued IV fluid. -Concern for possible Crohn's disease. Ordered fecal calprotectin which is a send out lab, if results are normal then inflammatory bowel disease is unlikely. -Monitor and replace electrolytes as needed. -Correction Humalog SSI every 6 hours while NPO, low-dose. -Resume home diltiazem, Lasix, Advair, Prilosec, prednisone, Flomax, trazodone at bedtime. -Holding home metformin. -Monitor volume status. -Diet per surgery. -DVT prophylaxis: Heparin SQ. -CODE STATUS: Full. Time Spent With Patient Time: Total time spent is greater than 50% in coordination of care (as documented) at patient's floor/unit and/or counseling patient: QUALITY Stroke Symptom Onset Unknown: No VTE Deep Vein Thrombosis/Pulmonary Embolism Present on Admission: No
[2022-08-31] MEDS ORDERED: ACETAMINOPHEN 325 MG TABLET PO PRN (11:36)
[2022-08-31] MEDS: FUROSEMIDE 20 MG TABLET PO SCH (11:53)
[2022-08-31] MEDS ORDERED: IPRATROPIUM/ALBUTEROL 3 ML AMPUL.NEB NEB SCH (12:00)
--- NOTE | 2022-08-31 14:43 | General Surgery Progress Note ---
SUBJECTIVE Subjective Patient information: Note initiated : 08/31/22 at 2:38 pm Service Date, if different from initiated Date: [] Patient: Kostas Barrios 67 y/o M admitted on 08/25/22. Chief Complaint: [] feels better overall, tolerating orals, UGI was negative for obstruction yesterday Constitutional Vitals: Vital Signs Temp Pulse Resp BP Pulse Ox O2 Del Method O2 Flow Rate 97.9 F 107 H 16 149/67 96 Room Air 1 08/31/22 11:16 08/31/22 12:12 08/31/22 12:12 08/31/22 11:16 08/31/22 12:12 08/31/22 12:12 08/26/22 12:00 Period Temp Pulse Resp BP Sys/Barry Pulse Ox O2 Del Method O2 Flow Rate Last 24 Hr 97.8 F-98.3 F 93-107 16-24 147-152/65-86 95-97 Room Air-Room Air Intake and Output 08/31/22 08/31/22 08/31/22 03:59 11:59 19:59 Intake Total 1415 1200 Output Total 700 Balance 715 1200 Weight 228 lb 1.6 oz Patient Weight 09/01/22 03:59 Weight 228 lb 1.6 oz Intake & Output: Intake & Output 08/31/22 08/31/22 08/31/22 03:59 11:59 19:59 Intake Total 1415 1200 Output Total 700 Balance 715 1200 Weight 228 lb 1.6 oz Intake: IV 1095 1200 Dextrose 5%-Lactated Ringers 1, 695 1000 000 ml @ 100 mls/hr IV .Q10H [facility] Rx#:[id number] Oral 320 Output: Void Amount 700 Other: Urine Appearance Clear Urine Color Yellow Exam: looks well, nontoxic, NAD Respiratory Respiratory exam: Present normal respiratory exam Cardiovascular Cardiovascular exam: Present RRR GI/Abdominal Additional comments: soft and non distended, non tender Extremities Exam Additional comments: well perfused A/P Assessment and plan (1) Small bowel obstruction: Assessment and plan: Resolved SBO per UGI yesterday Tolerating clears thus far, will advance to full liquids Continue IV antibiotics for now Likely needs treatment for active Crohn's, will discuss initiation of steroids with Medicine and would defer to their expertise regarding appropriate initial treatment Status: Acute (2) IBD (inflammatory bowel disease): Status: Chronic Time Spent With Patient Time: Total time spent is greater than 50% in coordination of care (as documented) at patient's floor/unit and/or counseling patient:
[2022-08-31] MEDS ORDERED: HYDROcodone/APAP (PP) 5/325MG TABLET (#4) PO PRN (14:49)
[2022-08-31] MEDS ORDERED: fentaNYL 75 MCG PATCH TD SCH (15:00)
[2022-08-31] MEDS ORDERED: fentaNYL 12 MCG PATCH TOPICAL SCH (15:00)
[2022-08-31] MEDS: HYDROcodone/APAP 10/325MG TABLET PO PRN ×2 (15:52→20:28)
[2022-08-31] MEDS: GABAPENTIN 400 MG CAPSULE PO SCH ×2 (15:52→20:29)
[2022-08-31] MEDS: FLUTICASONE/SALMETEROL 250/50 INHALER #14 INH SCH (20:29)
[2022-08-31] MEDS: TAMSULOSIN 0.4 MG CAPSULE PO SCH (20:29)
[2022-08-31] MEDS ORDERED: traZODone HCL 100 MG TABLET PO PRN (21:00)
[2022-09-01] MEDS: HYDROcodone/APAP 10/325MG TABLET PO PRN ×6 (00:20→20:49)
[2022-09-01] MEDS: INSULIN LISPRO 1 UNIT/0.01 ML UNIT SQ SCH ×5 (00:34→20:50)
[2022-09-01] MEDS: IPRATROPIUM/ALBUTEROL 3 ML AMPUL.NEB NEB SCH ×4 (01:08→18:25)
[2022-09-01] MEDS: HEPARIN 5,000 UNIT/ML VIAL SQ SCH ×3 (05:49→23:17)
[2022-09-01] MEDS: metroNIDAZOLE 500 MG/100 ML BAG IV SCH ×3 (05:51→22:00)
[2022-09-01 06:27] LABS: Hematocrit 33.8 % (40.1-51.0); Mean Cell Volume 75.6 fL (80.0-100.0); Mean Corpuscular HGB Conc 29.6 g/dL (31.0-36.0); Mean Platelet Volume 8.4 fL (8.8-12.5); Platelet Count 353 K/mcL (140-440); RBC 4.47 M/mcL (4.63-6.08); Red Cell Distribution Width 17.9 % (11.5-14.5); WBC 9.5 K/mcL (4.5-11.0)
[2022-09-01 06:52] LABS: Blood Urea Nitrogen 3 mg/dL (8-23); Calcium 8.1 mg/dL (8.6-10.4); Carbon Dioxide 21 mmol/L (22-30); Chloride 105 mmol/L (96-108); Glomerular Filtration Rate 94; Glucose 133 mg/dL (70-105)
[2022-09-01] MEDS: HYDROmorphone 1 MG/ML SYRINGE IV PRN ×5 (07:03→23:14)
[2022-09-01] MEDS ORDERED: POTASSIUM CHLORIDE 20 MEQ TABLET PO SCH (07:18)
[2022-09-01] MEDS: predniSONE 10 MG TABLET PO SCH (07:22)
[2022-09-01] MEDS: OMEPRAZOLE 20 MG CAPSULE PO SCH (07:22)
[2022-09-01] MEDS: FLUTICASONE/SALMETEROL 250/50 INHALER #14 INH SCH ×2 (07:23→20:49)
[2022-09-01] MEDS: CIPROFLOXACIN 400 MG/200 ML BAG IV SCH ×2 (07:28→20:52)
[2022-09-01] MEDS ORDERED: MAGNESIUM SULFATE 2 GM/50 ML BAG IV SCH (08:00)
--- NOTE | 2022-09-01 08:13 | Internal Med Progress Note ---
SUBJECTIVE Subjective Patient information: Note initiated : 09/01/22 at 8:12 am Service Date, if different from initiated Date: [] Patient: Kostas Barrios 67 y/o M admitted on 08/25/22. Chief Complaint: [] Interval history: Patient is a 67 years old male with diabetes mellitus 2, CAD, COPD, DJD, hepatitis C, ankylosing spondylitis, rheumatoid arthritis on prednisone, vitamin D deficiency has history of multiple recurrent small bowel obstructions, prior bowel perforation requiring partial colectomy and small bowel removal presented with acute onset of diffuse abdominal pain, nausea and vomiting since morning. Patient states it is similar to his prior bowel obstruction. Patient reported his last bowel obstruction was around 6 months ago when he was admitted in [place] this resolved with nonoperative management. Patient reports usually he does not require any supplemental oxygen for COPD but on ambulation up to 2 L he needs. His reported patient has had at least around [address] scan abdomen showed distal small bowel obstruction and proximal ileum. Patient was tachycardic, blood pressure was elevated 186/111 suspect due to pain. Labs showed WBC 21.5, hemoglobin 13.4. Lactic acid 3.6. Renal functions and electrolytes stable, glucose 230. 08/26. Patient feels much improved. Pain has significantly improved. No nausea or vomiting, has not passed flatus or has no bowel movement. 08/27. Patient reports abdominal pain is almost the same. Nursing staff reported NG output of about 800 cc. Not passing gas or flatus. No bowel movement. No leukocytosis, no fever. Surgery following. 08/28. Patient says he is passing gas but has not had a bowel movement yet. Abdomen soft, tenderness mostly in left abdominal quadrant. Low potassium today, replaced. Continues on NG tube to suction per general surgery. 08/29 No significant events reported overnight. Yesterday the patient lost IV access, replaced. Discussed the patient with Dr. Cosby, he is concerned the patient may have undiagnosed Crohn's disease given the thickened ileum. Patient seems to be passing more gas today, continue IV fluid, n.p.o. for surgery, surgery planning for small bowel follow-through tomorrow via NG tube. Replaced potassium. 08/30 No significant events reported overnight. Patient continues to report passing g as, no bowel movement yet. Small bowel follow-through today per surgery. Potassium low normal today. Fecal calprotectin ordered, it is a send out lab. 08/31 Vital stable overnight, small bowel follow-through did not show any obstruction. Tolerating diet well. Discontinued IV fluid. Resume home diltiazem, Lasix, Advair, Prilosec, prednisone, Flomax, trazodone at bedtime. NG tube removed. 09/01 Patient is feeling better today, tolerating his diet well so far with plan to advance diet today per general surgery. Fecal calprotectin level was elevated at 751. Potassium low this morning, replaced. Physical exam Head: Atraumatic, normal inspection. Eyes: normal appearance, no scleral icterus. Neck: full ROM Respiratory: no respiratory distress. Cardiovascular: normal rate and rhythm, S1, S2. GI/Abdominal: nondistended, soft, tenderness in left quadrant, no guarding. Extremities: full range of motion, nontender. Neurological: CN II-XII intact, intact motor, intact sensation. Psychiatric: normal mood. Skin: warm, normal color Constitutional Vitals: Vital Signs Temp Pulse Resp BP Pulse Ox O2 Del Method O2 Flow Rate 98.5 F 102 H 22 144/60 97 Room Air 1 09/01/22 03:08 09/01/22 06:36 09/01/22 06:36 09/01/22 03:08 09/01/22 06:36 09/01/22 06:36 08/26/22 12:00 Period Temp Pulse Resp BP Sys/Barry Pulse Ox O2 Del Method O2 Flow Rate Last 24 Hr 97.7 F-98.5 F 92-107 16-24 143-165/60-77 95-98 Room Air-Room Air Intake and Output 08/31/22 09/01/22 09/01/22 19:59 03:59 11:59 Intake Total 1058 830 100 Output Total 700 400 Balance 1058 130 -300 Weight 102.058 kg Intake & Output: Intake & Output 08/31/22 09/01/22 09/01/22 19:59 03:59 11:59 Intake Total 1058 830 100 Output Total 700 400 Balance 1058 130 -300 Weight 102.058 kg Intake: IV 818 300 100 Dextrose 5%-Lactated Ringers 1, 718 000 ml @ 100 mls/hr IV .Q10H [facility] Rx#:[id number] Oral 240 530 Output: Void Amount 700 400 Other: Meal Dinner Percent of Meal Consumed 100% Urine Appearance Clear Clear Urine Color Yellow Bright Yellow Stool Size Moderate Stool Color Brown Stool Consistency Soft # Voids 2 # Bowel Movements 1 OBJ DATA Labs 09/01/22 05:36 09/01/22 05:36 Labs: Abnormal Lab Results 09/01/22 09/01/22 08/31/22 05:36 05:36 06:02 RBC 4.47 L Hgb 10.0 L Hct 33.8 L MCV 75.6 L MCH 22.4 L MCHC 29.6 L RDW 17.9 H MPV 8.4 L Potassium 3.0 L Carbon Dioxide 21 L BUN 3 L 3 L Glucose 133 H 125 H Calcium 8.1 L 8.2 L Total Protein 5.5 L Albumin 2.8 L Stool Calprotectin 08/30/22 08/30/22 15:03 06:01 RBC Hgb Hct MCV MCH MCHC RDW MPV Potassium Carbon Dioxide 21 L BUN 4 L Glucose 112 H Calcium Total Protein 5.8 L Albumin 3.1 L Stool Calprotectin 751 H Meds: Medications Acetaminophen (Acetaminophen 325 Mg Tablet) 650 mg PO Q4HP PRN; Protocol PRN Reason: Per Pain Protocol Hydrocodone Bitart/Acetaminophen (Hydrocodone/Apap 10/325mg Tablet) 1 tab PO Q4HP PRN; Protocol PRN Reason: Pain Last Admin: 09/01/22 04:19 Dose: 1 tab Albuterol/Ipratropium (Ipratropium/Albuterol 3 Ml Ampul.Neb) 3 ml NEB Q6HRT [facility] Last Admin: 09/01/22 06:36 Dose: 3 ml Benzocaine (Benzocaine 20% 1 [place] Each) 1 spray TOPICAL Q4HP PRN PRN Reason: NG TUBE Last Admin: 08/29/22 21:40 Dose: 1 spray Dextrose (Dextrose 50% 50 Ml Vial) 0 ml IV UD PRN PRN Reason: Hypoglycemia Diagnostic Test (Pha) (Accu-Chek 1 Each Strip) 1 each FS Q6 [facility] Last Admin: 09/01/22 05:57 Dose: 1 each Diltiazem HCl (Diltiazem 240 Mg Cap.Xl.24h) 240 mg PO DAILY [facility] Fentanyl (Fentanyl 12 Mcg Patch) 12 mcg TOPICAL Q72H [facility] Last Admin: 08/31/22 15:51 Dose: 12 mcg Furosemide (Furosemide 20 Mg Tablet) 20 mg PO DAILY [facility] Last Admin: 08/31/22 11:53 Dose: 20 mg Gabapentin (Gabapentin 400 Mg Capsule) 1,200 mg PO TID [facility] Last Admin: 08/31/22 20:29 Dose: 1,200 mg Heparin Sodium (Porcine) (Heparin 5,000 Unit/Ml Vial) 5,000 unit SQ Q8 [facility] Last Admin: 09/01/22 05:49 Dose: 5,000 unit Hydralazine HCl (Hydralazine 20 Mg/Ml Vial) 10 mg IV Q6HP PRN PRN Reason: Hypertension Last Admin: 08/29/22 19:26 Dose: 10 mg Hydromorphone HCl (Hydromorphone 1 Mg/Ml Syringe) 0.5 - 1 mg IV Q1HP PRN; Protocol PRN Reason: Per Pain Protocol Last Admin: 09/01/22 07:03 Dose: 1 mg Ciprofloxacin (Cipro) 400 mg in 200 mls @ 200 mls/hr IV Q12H [facility]; Protocol Last Admin: 09/01/22 07:28 Dose: 200 mls/hr Metronidazole (Flagyl) 500 mg in 100 mls @ 100 mls/hr IV Q8H [facility]; Protocol Last Infusion: 09/01/22 06:54 Dose: Infused Magnesium Sulfate (Magnesium Sulfate) 2 gm in 50 mls @ 25 mls/hr IV ONCE [facility] Stop: 09/01/22 12:00 Insulin Human Lispro (Insulin Lispro 1 Unit/0.01 Ml Unit) 0 unit SQ Q6 [facility]; Protocol Last Admin: 09/01/22 05:57 Dose: Not Given Labetalol HCl (Labetalol 5 Mg/Ml Ml) 10 mg IV Q2HP PRN PRN Reason: Hypertension Last Admin: 08/29/22 21:00 Dose: 10 mg Omeprazole (Omeprazole 20 Mg Capsule) 20 mg PO ACB [facility] Last Admin: 09/01/22 07:22 Dose: 20 mg Potassium Chloride (Potassium Chloride 20 Meq Tablet) 40 meq PO ONCE [facility] Stop: 09/01/22 11:00 Last Admin: 09/01/22 07:26 Dose: 40 meq Prednis[facility] ([facility] 10 Mg [facility]t) [facility] Last Admin: 09/01/22 07:22 Dose: 10 mg Fluticasone/Salmeterol (Fluticasone/Salmeterol 250/50 Inhaler #14) 1 puff INH BID [facility] Last Admin: 09/01/22 07:23 Dose: Not Given Tamsulosin HCl (Tamsulosin 0.4 Mg Capsule) 0.4 mg PO QHS [facility] Last Admin: 08/31/22 20:29 Dose: 0.4 mg Trazodone HCl (Trazodone Hcl 100 Mg Tablet) 100 mg PO [facility] PRN PRN Reason: Insomnia A/P Narrative A/P Narrative: Assessment: 67-year-old male with history of recurrent small bowel obstructions, type 2 diabetes mellitus, coronary artery disease, CHF, COPD, hepatitis C, ankylosing spondylitis, BPH, trazodone, obesity admitted for a small bowel obstruction that has resolved. #Resolved small bowel obstruction, hx recurrent SBO #Distal ileum thickening per CT scan and concern for Crohn's disease #Microcytic anemia, stable (iron studies consistent with chronic inflammation) #Hypokalemia #Type 2 diabetes mellitus, stable #Coronary artery disease, stable #COPD, stable #Ankylosing spondylitis #Degenerative joint disease #Chronic pain on opioid therapy #BPH #Insomnia #Obesity BMI 33 Plan -Analgesics as needed. -Antibiotics per general surgery. -Monitor and replace electrolytes as needed. -Correction Humalog SSI low-dose. -Continue home diltiazem, Lasix, Advair, Prilosec, prednisone, Flomax, trazodone at bedtime. -Holding home metformin. -Monitor volume status. -Diet per surgery. -DVT prophylaxis: Heparin SQ. -CODE STATUS: Full. -Disposition: Currently inpatient MedSurg, diet being advanced per general surg renato. Anticipate the patient will discharge to home, recommend gastroenterology referral for inflammatory bowel disease work-up as the patient has distal ileum thickening per the CT scan, stool calprotectin level was elevated. Time Spent With Patient Time: Total time spent is greater than 50% in coordination of care (as documented) at patient's floor/unit and/or counseling patient: QUALITY Stroke Symptom Onset Unknown: No VTE Deep Vein Thrombosis/Pulmonary Embolism Present on Admission: No
[2022-09-01] MEDS: FUROSEMIDE 20 MG TABLET PO SCH (09:41)
[2022-09-01] MEDS: DILTIAZEM 240 MG CAP.XL.24H PO SCH (09:41)
[2022-09-01] MEDS: GABAPENTIN 400 MG CAPSULE PO SCH ×3 (09:41→20:55)
--- NOTE | 2022-09-01 13:27 | Internal Med Progress Note ---
SUBJECTIVE Subjective Patient information: Note initiated : 09/01/22 at 1:19 pm Service Date, if different from initiated Date: [] Patient: Kostas Barrios 67 y/o M admitted on 08/25/22. Chief Complaint: [] Interval history: Patient is a 67 years old male with diabetes mellitus 2, CAD, COPD, DJD, hepatitis C, ankylosing spondylitis, rheumatoid arthritis on prednisone, vitamin D deficiency has history of multiple recurrent small bowel obstructions, prior bowel perforation requiring partial colectomy and small bowel removal presented with acute onset of diffuse abdominal pain, nausea and vomiting since morning. Patient states it is similar to his prior bowel obstruction. Patient reported his last bowel obstruction was around 6 months ago when he was admitted in [place] this resolved with nonoperative management. Patient reports usually he does not require any supplemental oxygen for COPD but on ambulation up to 2 L he needs. His reported patient has had at least around [address] scan abdomen showed distal small bowel obstruction and proximal ileum. Patient was tachycardic, blood pressure was elevated 186/111 suspect due to pain. Labs showed WBC 21.5, hemoglobin 13.4. Lactic acid 3.6. Renal functions and electrolytes stable, glucose 230. 08/26. Patient feels much improved. Pain has significantly improved. No nausea or vomiting, has not passed flatus or has no bowel movement. 08/27. Patient reports abdominal pain is almost the same. Nursing staff reported NG output of about 800 cc. Not passing gas or flatus. No bowel movement. No leukocytosis, no fever. Surgery following. 08/28. Patient says he is passing gas but has not had a bowel movement yet. Abdomen soft, tenderness mostly in left abdominal quadrant. Low potassium today, replaced. Continues on NG tube to suction per general surgery. 08/29 No significant events reported overnight. Yesterday the patient lost IV access, replaced. Discussed the patient with Dr. Cosby, he is concerned the patient may have undiagnosed Crohn's disease given the thickened ileum. Patient seems to be passing more gas today, continue IV fluid, n.p.o. for surgery, surgery planning for small bowel follow-through tomorrow via NG tube. Replaced potassium. 08/30 No significant events reported overnight. Patient continues to report passing g as, no bowel movement yet. Small bowel follow-through today per surgery. Potassium low normal today. Fecal calprotectin ordered, it is a send out lab. 08/31 Vital stable overnight, small bowel follow-through did not show any obstruction. Tolerating diet well. Discontinued IV fluid. Resume home diltiazem, Lasix, Advair, Prilosec, prednisone, Flomax, trazodone at bedtime. NG tube removed. 09/01 Patient is feeling better today, tolerating his diet well so far with plan to advance diet today per general surgery. Fecal calprotectin level was elevated at 751. Potassium low this morning, replaced. 09/02 Review of Systems: denies headache/fever/chills/nausea/vomiting/chest or abdominal pain/ cough/dyspnea/diarrhea. Otherwise see above. PHYSICAL EXAM General: Alert, Awake, No acute Distress Eyes/N/T: EOMI, no scleral icterus, Head/Neck: neck supple, full ROM, CV: RRR, No murmurs, Pulm: Clear b/l, no wheezing/rhonchi/rales, no respiratory distress Abd: soft, nontender, +BS x4 Ext: no clubbing/cyanosis/edema, nontender Neuro: Alert, no focal deficits, moves all extremities, , sensations intact b/l upper/lower Psychiatric: Skin: warm/dry, normal color Constitutional Vitals: Vital Signs Temp Pulse Resp BP Pulse Ox O2 Del Method O2 Flow Rate 99.3 F H 100 H 16 146/77 96 Room Air 1 09/01/22 12:00 09/01/22 12:17 09/01/22 12:17 09/01/22 12:00 09/01/22 12:17 09/01/22 12:17 08/26/22 12:00 Period Temp Pulse Resp BP Sys/Barry Pulse Ox O2 Del Method O2 Flow Rate Last 24 Hr 97.7 F-99.3 F 92-106 16-24 143-165/60-77 95-98 Room Air-Room Air Intake and Output 09/01/22 09/01/22 09/01/22 03:59 11:59 19:59 Intake Total 830 350 Output Total 700 400 Balance 130 -50 Intake & Output: Intake & Output 09/01/22 09/01/22 09/01/22 03:59 11:59 19:59 Intake Total 830 350 Output Total 700 400 Balance 130 -50 Intake: IV 300 350 Oral 530 Output: Void Amount 700 400 Other: Urine Appearance Clear Clear Urine Color Yellow Bright Yellow Stool Size Moderate Stool Color Brown Stool Consistency Soft # Voids 2 # Bowel Movements 1 1 OBJ DATA Labs 09/01/22 05:36 09/01/22 05:36 Labs: Abnormal Lab Results 09/01/22 09/01/22 08/31/22 05:36 05:36 06:02 RBC 4.47 L Hgb 10.0 L Hct 33.8 L MCV 75.6 L MCH 22.4 L MCHC 29.6 L RDW 17.9 H MPV 8.4 L Potassium 3.0 L Carbon Dioxide 21 L BUN 3 L 3 L Glucose 133 H 125 H Calcium 8.1 L 8.2 L Total Protein 5.5 L Albumin 2.8 L Stool Calprotectin 08/30/22 08/30/22 15:03 06:01 RBC Hgb Hct MCV MCH MCHC RDW MPV Potassium Carbon Dioxide 21 L BUN 4 L Glucose 112 H Calcium Total Protein 5.8 L Albumin 3.1 L Stool Calprotectin 751 H Meds: Medications Acetaminophen (Acetaminophen 325 Mg Tablet) 650 mg PO Q4HP PRN; Protocol PRN Reason: Per Pain Protocol Hydrocodone Bitart/Acetaminophen (Hydrocodone/Apap 10/325mg Tablet) 1 tab PO Q4HP PRN; Protocol PRN Reason: Pain Last Admin: 09/01/22 13:04 Dose: 1 tab Albuterol/Ipratropium (Ipratropium/Albuterol 3 Ml Ampul.Neb) 3 ml NEB Q6HRT [facility] Last Admin: 09/01/22 12:16 Dose: 3 ml Benzocaine (Benzocaine 20% 1 [place] Each) 1 spray TOPICAL Q4HP PRN PRN Reason: NG TUBE Last Admin: 08/29/22 21:40 Dose: 1 spray Dextrose (Dextrose 50% 50 Ml Vial) 0 ml IV UD PRN PRN Reason: Hypoglycemia Diagnostic Test (Pha) (Accu-Chek 1 Each Strip) 1 each FS Q6 [facility] Last Admin: 09/01/22 12:47 Dose: Not Given Diltiazem HCl (Diltiazem 240 Mg Cap.Xl.24h) 240 mg PO DAILY [facility] Last Admin: 09/01/22 09:41 Dose: 240 mg Fentanyl (Fentanyl 12 Mcg Patch) 12 mcg TOPICAL Q72H [facility] Last Admin: 08/31/22 15:51 Dose: 12 mcg Furosemide (Furosemide 20 Mg Tablet) 20 mg PO DAILY [facility] Last Admin: 09/01/22 09:41 Dose: 20 mg Gabapentin (Gabapentin 400 Mg Capsule) 1,200 mg PO TID [facility] Last Admin: 09/01/22 09:41 Dose: 1,200 mg Heparin Sodium (Porcine) (Heparin 5,000 Unit/Ml Vial) 5,000 unit SQ Q8 [facility] Last Admin: 09/01/22 05:49 Dose: 5,000 unit Hydralazine HCl (Hydralazine 20 Mg/Ml Vial) 10 mg IV Q6HP PRN PRN Reason: Hypertension Last Admin: 08/29/22 19:26 Dose: 10 mg Hydromorphone HCl (Hydromorphone 1 Mg/Ml Syringe) 0.5 - 1 mg IV Q1HP PRN; Protocol PRN Reason: Per Pain Protocol Last Admin: 09/01/22 10:25 Dose: 1 mg Ciprofloxacin (Cipro) 400 mg in 200 mls @ 200 mls/hr IV Q12H [facility]; Protocol Last Infusion: 09/01/22 09:43 Dose: Infused Metronidazole (Flagyl) 500 mg in 100 mls @ 100 mls/hr IV Q8H [facility]; Protocol Last Infusion: 09/01/22 06:54 Dose: Infused Insulin Human Lispro (Insulin Lispro 1 Unit/0.01 Ml Unit) 0 unit SQ ACHS [facility]; Protocol Last Admin: 09/01/22 12:47 Dose: Not Given Labetalol HCl (Labetalol 5 Mg/Ml Ml) 10 mg IV Q2HP PRN PRN Reason: Hypertension Last Admin: 08/29/22 21:00 Dose: 10 mg Omeprazole (Omeprazole 20 Mg Capsule) 20 mg PO ACB [facility] Last Admin: 09/01/22 07:22 Dose: 20 mg Prednisone (Prednisone 10 Mg Tablet) 10 mg PO QAMCC [facility] Last Admin: 09/01/22 07:22 Dose: 10 mg Fluticasone/Salmeterol (Fluticasone/Salmeterol 250/50 Inhaler #14) 1 puff INH BID [facility] Last Admin: 09/01/22 07:23 Dose: Not Given Tamsulosin HCl (Tamsulosin 0.4 Mg Capsule) 0.4 mg PO QHS [facility] Last Admin: 08/31/22 20:29 Dose: 0.4 mg Trazodone HCl (Trazodone Hcl 100 Mg Tablet) 100 mg PO [facility] PRN PRN Reason: Insomnia A/P Narrative A/P Narrative: A: #SBO (hx recurrent SBO): resolved #Distal ileum thickening per CT scan and concern for Crohn's disease -elevated stool calprotectin #Microcytic anemia, stable (iron studies consistent with chronic inflammation): #Hypokalemia: #Type 2 diabetes mellitus, stable #Coronary artery disease, stable #COPD, stable: #Ankylosing spondylitis #Degenerative joint disease #Chronic pain on opioid therapy #BPH #Insomnia #Obesity: BMI 33 Plan: -Analgesics as needed -Antibiotics per general surgery -Monitor and replace electrolytes as needed. -Correction Humalog SSI low-dose. -Continue home diltiazem, Lasix, Advair, Prilosec, prednisone, Flomax, trazodone at bedtime. -Holding home metformin. -Monitor volume status. -Diet per surgery -recommend gastroenterology referral for IBD w/u given distal ileum thickening per CT and elevated stool calprotectin -ppx: Heparin CODE STATUS: Non Destructive Tester Spent With Patient Time: Total time spent is greater than 50% in coordination of care (as documented) at patient's floor/unit and/or counseling patient: QUALITY Stroke Symptom Onset Unknown: No VTE Deep Vein Thrombosis/Pulmonary Embolism Present on Admission: No
--- NOTE | 2022-09-01 14:55 | General Surgery Progress Note ---
SUBJECTIVE Subjective Patient information: Note initiated : 09/01/22 at 2:52 pm Service Date, if different from initiated Date: [] Patient: Kostas Barrios 67 y/o M admitted on 08/25/22. Chief Complaint: [] Continues to feel much better, tolerating diet with good bowel function. Stool study noted, results consistent with clinical impression of Crohn's Disease Constitutional Vitals: Vital Signs Temp Pulse Resp BP Pulse Ox O2 Del Method O2 Flow Rate 99.3 F H 100 H 16 146/77 96 Room Air 1 09/01/22 12:00 09/01/22 12:17 09/01/22 12:17 09/01/22 12:00 09/01/22 12:17 09/01/22 12:17 08/26/22 12:00 Period Temp Pulse Resp BP Sys/Barry Pulse Ox O2 Del Method O2 Flow Rate Last 24 Hr 97.7 F-99.3 F 92-106 16-24 143-165/60-77 95-98 Room Air-Room Air Intake and Output 09/01/22 09/01/22 09/01/22 03:59 11:59 19:59 Intake Total 830 350 Output Total 700 400 Balance 130 -50 Intake & Output: Intake & Output 09/01/22 09/01/22 09/01/22 03:59 11:59 19:59 Intake Total 830 350 Output Total 700 400 Balance 130 -50 Intake: IV 300 350 Oral 530 Output: Void Amount 700 400 Other: Urine Appearance Clear Clear Urine Color Yellow Bright Yellow Stool Size Moderate Stool Color Brown Stool Consistency Soft # Voids 2 # Bowel Movements 1 1 Exam: Looks well, nontoxic, NAD Respiratory Respiratory exam: Present normal respiratory exam Cardiovascular Cardiovascular exam: Present normal rate and rhythm GI/Abdominal Additional comments: soft and non distended, minimally tender Extremities Exam Additional comments: well perfused A/P Assessment and plan (1) Small bowel obstruction: Status: Acute Plan Resolved SBO Probable Crohn's Disease with Active TI Disease Continue ABs with plans for probable discharge tomorrow No operative indications at this time, will defer to Medicine regarding any plans for Active Crohn's Treatment initiation ahead of outside GI referral and consultation Time Spent With Patient Time: Total time spent is greater than 50% in coordination of care (as documented) at patient's floor/unit and/or counseling patient:
[2022-09-01] MEDS: TAMSULOSIN 0.4 MG CAPSULE PO SCH (20:49)
[2022-09-02] MEDS: IPRATROPIUM/ALBUTEROL 3 ML AMPUL.NEB NEB SCH ×3 (00:08→10:13)
[2022-09-02] MEDS: HYDROcodone/APAP 10/325MG TABLET PO PRN ×3 (01:14→09:45)
[2022-09-02] MEDS: HYDROmorphone 1 MG/ML SYRINGE IV PRN ×3 (03:50→11:19)
[2022-09-02] MEDS: metroNIDAZOLE 500 MG/100 ML BAG IV SCH (05:14)
--- NOTE | 2022-09-02 07:23 | Internal Med Progress Note ---
SUBJECTIVE Subjective Patient information: Note initiated : 09/02/22 at 7:20 am Service Date, if different from initiated Date: [] Patient: Kostas Barrios 67 y/o M admitted on 08/25/22. Chief Complaint: [] Interval history: Patient is a 67 years old male with diabetes mellitus 2, CAD, COPD, DJD, hepatitis C, ankylosing spondylitis, rheumatoid arthritis on prednisone, vitamin D deficiency has history of multiple recurrent small bowel obstructions, prior bowel perforation requiring partial colectomy and small bowel removal presented with acute onset of diffuse abdominal pain, nausea and vomiting since morning. Patient states it is similar to his prior bowel obstruction. Patient reported his last bowel obstruction was around 6 months ago when he was admitted in [place] this resolved with nonoperative management. Patient reports usually he does not require any supplemental oxygen for COPD but on ambulation up to 2 L he needs. His reported patient has had at least around [address] scan abdomen showed distal small bowel obstruction and proximal ileum. Patient was tachycardic, blood pressure was elevated 186/111 suspect due to pain. Labs showed WBC 21.5, hemoglobin 13.4. Lactic acid 3.6. Renal functions and electrolytes stable, glucose 230. 08/26. Patient feels much improved. Pain has significantly improved. No nausea or vomiting, has not passed flatus or has no bowel movement. 08/27. Patient reports abdominal pain is almost the same. Nursing staff reported NG output of about 800 cc. Not passing gas or flatus. No bowel movement. No leukocytosis, no fever. Surgery following. 08/28. Patient says he is passing gas but has not had a bowel movement yet. Abdomen soft, tenderness mostly in left abdominal quadrant. Low potassium today, replaced. Continues on NG tube to suction per general surgery. 08/29 No significant events reported overnight. Yesterday the patient lost IV access, replaced. Discussed the patient with Dr. Cosby, he is concerned the patient may have undiagnosed Crohn's disease given the thickened ileum. Patient seems to be passing more gas today, continue IV fluid, n.p.o. for surgery, surgery planning for small bowel follow-through tomorrow via NG tube. Replaced potassium. 08/30 No significant events reported overnight. Patient continues to report passing g as, no bowel movement yet. Small bowel follow-through today per surgery. Potassium low normal today. Fecal calprotectin ordered, it is a send out lab. 08/31 Vital stable overnight, small bowel follow-through did not show any obstruction. Tolerating diet well. Discontinued IV fluid. Resume home diltiazem, Lasix, Advair, Prilosec, prednisone, Flomax, trazodone at bedtime. NG tube removed. 09/01 Patient is feeling better today, tolerating his diet well so far with plan to advance diet today per general surgery. Fecal calprotectin level was elevated at 751. Potassium low this morning, replaced. 09/02 Patient continues to feel well. Bowel function. No new complaints. Discussed the case with Pauly Pulliam but their office does not take his insurance so put a referral in for him to see another staffing operations manager. Discussed starting budesonide, will likely start on 9mg daily and have him follow-up with GI and PCP. Review of Systems: denies headache/fever/chills/nausea/vomiting/chest or abdominal pain/cough/dyspnea/diarrhea. Otherwise see above. PHYSICAL EXAM General: Alert, Awake, No acute Distress Eyes/N/T: EOMI, no scleral icterus, Head/Neck: neck supple, full ROM, CV: RRR, No murmurs, Pulm: Clear b/l, no wheezing/rhonchi/rales, no respiratory distress Abd: soft, nontender, +BS x4 Ext: no clubbing/cyanosis/edema, nontender Neuro: Alert, no focal deficits, moves all extremities, , sensations intact b/l upper/lower Psychiatric: Skin: warm/dry, normal color Constitutional Vitals: Vital Signs Temp Pulse Resp BP Pulse Ox O2 Del Method O2 Flow Rate 97.9 F 94 H 20 144/78 96 Room Air 1 09/02/22 03:17 09/02/22 06:47 09/02/22 06:47 09/02/22 03:17 09/02/22 06:47 09/02/22 06:47 08/26/22 12:00 Period Temp Pulse Resp BP Sys/Barry Pulse Ox O2 Del Method O2 Flow Rate Last 24 Hr 97.9 F-99.3 F 91-110 16-24 144-159/63-84 95-97 Room Air-Room Air Intake and Output 09/01/22 09/02/2209/02/23 19:59 03:59 11:59 Intake Total 500 1150 240 Output Total 900 Balance 500 250 240 Weight 106.73 kg Intake & Output: Intake & Output 09/01/22 09/02/22 09/02/22 19:59 03:59 11:59 Intake Total 500 1150 240 Output Total 900 Balance 500 250 240 Weight 106.73 kg Intake: IV 100 300 Oral 400 850 240 Output: Void Amount 900 Other: Meal Dinner Ice Cream (2), Jello, Yogurt Percent of Meal Consumed 100% 100% Feeding Ability Independent Independent Urine Appearance Clear Urine Color Yellow # Voids 3 # Bowel Movements 1 OBJ DATA Labs 09/01/22 05:36 09/02/22 06:05 Labs: Abnormal Lab Results 09/01/22 09/01/22 08/31/22 05:36 05:36 06:02 RBC 4.47 L Hgb 10.0 L Hct 33.8 L MCV 75.6 L MCH 22.4 L MCHC 29.6 L RDW 17.9 H MPV 8.4 L Potassium 3.0 L Carbon Dioxide 21 L BUN 3 L 3 L Glucose 133 H 125 H Calcium 8.1 L 8.2 L Total Protein 5.5 L Albumin 2.8 L Stool Calprotectin 08/30/22 08/30/22 15:03 06:01 RBC Hgb Hct MCV MCH MCHC RDW MPV Potassium Carbon Dioxide 21 L BUN 4 L Glucose 112 H Calcium Total Protein 5.8 L Albumin 3.1 L Stool Calprotectin 751 H Meds: Medications Acetaminophen (Acetaminophen 325 Mg Tablet) 650 mg PO Q4HP PRN; Protocol PRN Reason: Per Pain Protocol Hydrocodone Bitart/Acetaminophen (Hydrocodone/Apap 10/325mg Tablet) 1 tab PO Q4HP PRN; Protocol PRN Reason: Pain Last Admin: 09/02/22 05:14 Dose: 1 tab Albuterol/Ipratropium (Ipratropium/Albuterol 3 Ml Ampul.Neb) 3 ml NEB Q6HRT [facility] Last Admin: 09/02/22 06:47 Dose: 3 ml Benzocaine (Benzocaine 20% 1 [place] Each) 1 spray TOPICAL Q4HP PRN PRN Reason: NG TUBE Last Admin: 08/29/22 21:40 Dose: 1 spray Dextrose (Dextrose 50% 50 Ml Vial) 0 ml IV UD PRN PRN Reason: Hypoglycemia Diagnostic Test (Pha) (Accu-Chek 1 Each Strip) 1 each FS Q6 [facility] Last Admin: 09/02/22 00:07 Dose: 1 each Diltiazem HCl (Diltiazem 240 Mg Cap.Xl.24h) 240 mg PO DAILY [facility] Last Admin: 09/01/22 09:41 Dose: 240 mg Fentanyl (Fentanyl 12 Mcg Patch) 12 mcg TOPICAL Q72H [facility] Last Admin: 08/31/22 15:51 Dose: 12 mcg Furosemide (Furosemide 20 Mg Tablet) 20 mg PO DAILY [facility] Last Admin: 09/01/22 09:41 Dose: 20 mg Gabapentin (Gabapentin 400 Mg Capsule) 1,200 mg PO TID [facility] Last Admin: 09/01/22 20:55 Dose: 1,200 mg Heparin Sodium (Porcine) (Heparin 5,000 Unit/Ml Vial) 5,000 unit SQ Q8 [facility] Last Admin: 09/01/22 23:17 Dose: 5,000 unit Hydralazine HCl (Hydralazine 20 Mg/Ml Vial) 10 mg IV Q6HP PRN PRN Reason: Hypertension Last Admin: 08/29/22 19:26 Dose: 10 mg Hydromorphone HCl (Hydromorphone 1 Mg/Ml Syringe) 0.5 - 1 mg IV Q1HP PRN; Protocol PRN Reason: Per Pain Protocol Last Admin: 09/02/22 03:50 Dose: 1 mg Ciprofloxacin (Cipro) 400 mg in 200 mls @ 200 mls/hr IV Q12H [facility]; Protocol Last Infusion: 09/01/22 22:00 Dose: Infused Metronidazole (Flagyl) 500 mg in 100 mls @ 100 mls/hr IV Q8H [facility]; Protocol Last Admin: 09/02/22 05:14 Dose: 100 mls/hr Insulin Human Lispro (Insulin Lispro 1 Unit/0.01 Ml Unit) 0 unit SQ ACHS [facility]; Protocol Last Admin: 09/01/22 20:50 Dose: Not Given Labetalol HCl (Labetalol 5 Mg/Ml Ml) 10 mg IV Q2HP PRN PRN Reason: Hypertension Last Admin: 08/29/22 21:00 Dose: 10 mg Omeprazole (Omeprazole 20 Mg Capsule) 20 mg PO ACB [facility] Last Admin: 09/01/22 07:22 Dose: 20 mg Prednisone (Prednisone 10 Mg Tablet) 10 mg PO QAC [facility] Last Admin: 09/01/22 07:22 Dose: 10 mg Fluticasone/Salmeterol (Fluticasone/Salmeterol 250/50 Inhaler #14) 1 puff INH BID [facility] Last Admin: 09/01/22 20:49 Dose: Not Given Tamsulosin HCl (Tamsulosin 0.4 Mg Capsule) 0.4 mg PO QHS [facility] Last Admin: 09/01/22 20:49 Dose: 0.4 mg Trazodone HCl (Trazodone Hcl 100 Mg Tablet) 100 mg PO HSP PRN PRN Reason: Insomnia A/P Narrative A/P Narrative: A: #SBO (hx recurrent SBO): resolved #Distal ileum thickening per CT scan and concern for Crohn's disease -elevated stool calprotectin #Microcytic anemia, stable (iron studies consistent with chronic inflammation): #Hypokalemia: #Type 2 diabetes mellitus, stable #Coronary artery disease, stable #COPD, stable: #Ankylosing spondylitis: #Degenerative joint disease : #Chronic pain on opioid therapy: #BPH: #Insomnia; #Obesity: BMI 33 Plan: -Analgesics as needed -Antibiotics per general surgery -Monitor and replace electrolytes as needed. -Correction Humalog SSI low-dose, Holding home metformin -Continue home diltiazem, Lasix, Advair, Prilosec, prednisone, Flomax, trazodone at bedtime. -Monitor volume status. -Diet per surgery -recommend gastroenterology referral for IBD w/u given distal ileum thickening p er CT and elevated stool calprotectin -will start on budesonide -ppx: Heparin CODE STATUS: Environmental Resource Specialist Spent With Patient Time: Total time spent is greater than 50% in coordination of care (as documented) at patient's floor/unit and/or counseling patient: Subsequent: Total time with patient: 35 - 49 minutes QUALITY Stroke Symptom Onset Unknown: No VTE Deep Vein Thrombosis/Pulmonary Embolism Present on Admission: No
[2022-09-02] MEDS: INSULIN LISPRO 1 UNIT/0.01 ML UNIT SQ SCH ×2 (07:29→11:52)
[2022-09-02] MEDS: OMEPRAZOLE 20 MG CAPSULE PO SCH (07:37)
[2022-09-02] MEDS: HEPARIN 5,000 UNIT/ML VIAL SQ SCH (07:39)
[2022-09-02 08:11] LABS: ALT/SGPT 10 U/L (<40); AST/SGOT 15 U/L (<40); Albumin 2.9 gm/dL (3.2-5.2); Alkaline Phosphatase 54 U/L (39-117); Bilirubin,Direct < 0.2 mg/dL (0-0.3); Bilirubin,Total < 0.2 mg/dL (0.1-1.0); Blood Urea Nitrogen 3 mg/dL (8-23); Calcium 8.1 mg/dL (8.6-10.4); Carbon Dioxide 21 mmol/L (22-30); Chloride 103 mmol/L (96-108); Globulin 2.9 gm/dL (2.2-3.7); Glomerular Filtration Rate 94; Glucose 125 mg/dL (70-105); Lactate Dehydrogenase 199 U/L (135-225); Phosphorous 3.3 mg/dL (2.5-4.5); Triglycerides 127 mg/dL (<150); Uric Acid 4.1 mg/dL (2.5-8.0)
[2022-09-02] MEDS ORDERED: BUDESONIDE 3 MG CAP.XL.24H PO SCH (09:00)
[2022-09-02] MEDS: DILTIAZEM 240 MG CAP.XL.24H PO SCH (09:03)
[2022-09-02] MEDS: GABAPENTIN 400 MG CAPSULE PO SCH (09:03)
[2022-09-02] MEDS: FUROSEMIDE 20 MG TABLET PO SCH (09:03)
[2022-09-02] MEDS: predniSONE 10 MG TABLET PO SCH (09:10)
[2022-09-02] MEDS: CIPROFLOXACIN 400 MG/200 ML BAG IV SCH (09:47)
[2022-09-02] MEDS: FLUTICASONE/SALMETEROL 250/50 INHALER #14 INH SCH (11:03)
--- NOTE | 2022-09-02 11:48 | General Surgery Progress Note ---
SUBJECTIVE Subjective Patient information: Note initiated : 09/02/22 at 11:43 am Service Date, if different from initiated Date: [] Patient: Kostas Barrios 67 y/o M admitted on 08/25/22. Chief Complaint: [] Doing well, anxious for discharge today, well with diet, pain essentially resolved Constitutional Vitals: Vital Signs Temp Pulse Resp BP Pulse Ox O2 Del Method O2 Flow Rate 98.1 F 94 H 22 141/66 96 Room Air 1 09/02/22 07:41 09/02/22 10:24 09/02/22 10:24 09/02/22 07:41 09/02/22 10:24 09/02/22 10:24 08/26/22 12:00 Period Temp Pulse Resp BP Sys/Barry Pulse Ox O2 Del Method O2 Flow Rate Last 24 Hr 97.9 F-99.3 F 91-110 16-24 141-159/63-84 95-97 Room Air-Room Air Intake and Output 09/01/22 09/02/22 09/02/22 19:59 03:59 11:59 Intake Total 500 1150 1020 Output Total 900 200 Balance 500 250 820 Weight 235 lb 4.8 oz Intake & Output: Intake & Output 09/01/22 09/02/22 09/02/22 19:59 03:59 11:59 Intake Total 500 1150 1020 Output Total 900 200 Balance 500 250 820 Weight 235 lb 4.8 oz Intake: IV 100 300 300 Oral 400 850 720 Output: Void Amount 900 200 Other: Meal Dinner Ice Cream (2), Jello, Yogurt Breakfast Percent of Meal Consumed 100% 100% 100% Feeding Ability Independent Independent Independent Urine Appearance Clear Urine Color Yellow # Voids 3 # Bowel Movements 1 Exam: looks well, non toxic, NAD Respiratory Respiratory exam: Present normal respiratory exam Cardiovascular Cardiovascular exam: Present normal rate and rhythm GI/Abdominal Additional comments: soft and non tender, non distended Extremities Exam Additional comments: well perfused A/P Assessment and plan (1) IBD (inflammatory bowel disease): Assessment and plan: Resolved SBO Likely has Newly Diagnosed Crohn's Disease Home on oral AB regimen with GI follow up for definitive diagnosis and treatment Clinic follow up in 2-4 weeks with us as well Status: Chronic Time Spent With Patient Time: Total time spent is greater than 50% in coordination of care (as documented) at patient's floor/unit and/or counseling patient:
--- NOTE | 2022-09-06 09:57 | Discharge Summary ---
DATE OF ADMISSION: 08/25/2022 DATE OF DISCHARGE: 09/02/2022 ADMITTING DIAGNOSIS: Acute abdomen with small-bowel obstruction. DISCHARGE DIAGNOSES: Presumed new onset and newly-diagnosed terminal ileal Crohn's disease with resolved small-bowel obstruction. ADMITTING PHYSICIAN: Ponce Cosby M.D. DISCHARGING PHYSICIAN: Ponce Cosby M.D. INDICATIONS FOR ADMISSION AND HOSPITAL COURSE: The patient is a 67-year-old male who presented to the Emergency Room on 08/25/2022 with severe, tremendous, acute onset abdominal pain and findings consistent with small-bowel obstruction on CT imaging. On exam, he had an acute abdomen and emergency surgery was recommended for him. Our operating room could not accommodate that for roughly 4 to 5 hours. IV antibiotics were given, an NG tube was placed, and in this period of time he actually improved significantly to the point that we no longer needed to recommend strongly that he go emergently to the operating room after that interval period of time as he had improved and no longer had findings consistent with an acute emergent intra-abdominal process. He was thus admitted to the hospital and managed conservatively, initially with IV antibiotics, NG tube decompression, and observational management. He continued to have quite a bit of pain and discomfort, but there was evidence right away that his obstruction was resolving. Distention appeared to be less. His pain was markedly improved, which was really the significant indicator of improvement, and his white count and other parameters began to normalize. By day 3 or 4, he continued to have pain and discomfort, however, and continued high NG tube outputs, but was passing gas now and again beginning to have some evidence of resolution, so we elected to repeat his abdominal CT scan on 08/27/2022, roughly 48 to 72 hours after his initial presentation. That demonstrated resolution of the small-bowel obstruction but showed an extremely long and extremely inflamed distal segment of small bowel, roughly the distal 30 centimeters of the terminal ileum and hepatic and was felt to be consistent with inflammatory bowel disease. Because of his severe emphysema, COPD, and the number of surgeries he had on his belly before, we elected to continue to treat him and manage him nonoperatively since his obstruction resolved and there was evidence now this was an acute and previously undiagnosed Crohn's flare. His antibiotics were adjusted to some extent. A small bowel follow-through was performed the following day on 08/28/2022, which demonstrated that there was no evidence of obstruction functional or mechanical otherwise and liquids passed very quickly through the impacted segment of bowel. The NG tube was removed and he was started on a clear liquid diet and then gradually advanced over the course of the next several days until he was felt ready for discharge on 09/02/2022. Medicine was involved with his care and help in managing his innumerable other medical issues. Discussions were had regarding the potential for Crohn's disease and a stool calprotectin was found to be elevated consistent with Crohn's. They did not recommend initiation on high-dose steroids at that time and instead recommended followup with Gastroenterology on an outpatient basis as he was otherwise doing well. By 09/02/2022, he was felt ready for discharge. DISPOSITION: Home with followup in clinic as well as outside GI referral. DISCHARGE MEDICATIONS: Included continuance of oral Cipro 500 mg p.o. b.i.d. as well as Flagyl 500 mg p.o. t.i.d. IN-HOSPITAL COMPLICATIONS: None apparent. IN-HOSPITAL PROCEDURES: On 08/29/2022, he underwent an upper GI/small bowel follow-through. On 08/27/2022, he underwent a CT scan of the abdomen with IV contrast only. [id number] Job ID: [id number] Doc ID: [id number] Ponce Cosby M.D.
== END 2022-09-02 13:00 | disposition home or self-care (01) | DRG 387 ==
LOC: ED 11:48 → SUR 17:55 → MEDSUR 18:37
PROVIDERS: ADMIT Surgery Surgical Critical Care; ATTEND Surgery Surgical Critical Care